=== PATIENT | female | born 1935 | race Caucasian/White ===

== ENCOUNTER 2020-04-18 09:02 | Inpatient (IN) ==
[2020-04-18] MEDS ORDERED: ACETAMINOPHEN 1,000 MG/100 ML VIAL IV STA (10:07)
--- NOTE | 2020-04-18 10:15 | Emergency Department Note ---
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 infarct. Based on this as well as the fact that the patient does not take any medications and her blood pressure is very high I did discuss the case with the hospitalist service who did agree to meet the patient I will note that the patient's troponin is elevated. She does have a slight elevation in her white blood cell count and was started on Rocephin for UTI. An order was placed for continuous cardiac monitoring. The monitor shows a rate of 90 with Normal SInus rhythm. The patient was evaluated during a period of high volume and high acuity while the hospital was at overcapacity during the global COVID-19 pandemic, and that diagnosis was suspected/considered upon their initial presentation. Their evaluation, treatment and testing was consistent with current guidelines for patients who present with complaints or symptoms that may be related to COVID- 19. Impression & Plan Fall, Vomiting, Acute UTI, Hypertension, Renal infarct Discharge Plan Visit Data Chief Complaint: Fall ED Provider: Raman Ross Discharge Problem: Fall, Vomiting, Acute UTI, Hypertension, Renal infarct Forms Stand Alone Forms: [employer] Prescriptions Prescriptions: No Action hydrocodone-acetaminophen 10-325 mg tablet 1 tab PO .COMPLEX PRN (Reason: pain) Qty: 120 RF: 0 Referrals Referrals: PCP,NO [Primary Care Provider] -
[2020-04-18] MEDS ORDERED: SODIUM CHLORIDE 0.9% 1000ML 500 ML IV ONE (10:18)
[2020-04-18 10:58] LABS: Basophils # (auto) 0.01 K/uL (0-0.2); Basophils % (auto) 0.1 %; Eosinophils # (auto) 0.01 K/uL (0-0.5); Eosinophils % (auto) 0.1 %; Hematocrit (blood only) 33.9 % (37-47); Hemoglobin 11.1 g/dL (12.0-16.0); Immature Granulocytes # (auto) 0.02 K/uL (0.00-0.02); Immature Granulocytes % (auto) 0.2 %; Lymphocytes # (auto) 1.13 K/uL (1.2-3.4); Lymphocytes % (auto) 8.6 %; Mean Corpuscular Hemoglobin 30.6 pg (25-34); Mean Corpuscular Hgb Conc 32.7 g/dL (32-36); Mean Corpuscular Volume 93.4 fL (80-100); Mean Platelet Volume 8.9 fL (7.4-10.4); Monocytes # (auto) 0.88 K/uL (0.11-0.59); Monocytes % (auto) 6.7 %; Neutrophils # (auto) 11.15 K/uL (1.4-6.5); Neutrophils % (auto) 84.3 %; Platelet Count 367 K/uL (130-400); RDW Coefficient of Variation 15.6 % (11.5-14.5); RDW Standard Deviation 53.7 fL (36.4-46.3); Red Blood Count 3.63 M/uL (4.2-5.4)
[2020-04-18] MEDS: HYDROmorphone INJ 0.5 MG/0.5 ML SYR IV PRN ×2 (11:00→15:04)
[2020-04-18 11:14] LABS: Appearance Urine Cloudy (Clear); Bacteria Urine Automated Negative (Negative); Bilirubin Urine Negative (Negative); Blood Urine Trace (Negative); Color Urine Yellow; Glucose Urine UA Negative (Negative); Ketones Urine Negative (Negative); Leukocyte Esterase Urine 2+ (Negative); Nitrite Urine Negative (Negative); Protein Urine 3+ (Negative); RBC Urine Automated 0-4 /hpf (0-4); Specific Gravity Urine 1.016 (1.000-1.030); Urobilinogen Urine Negative (Negative); WBC Urine Automated >30 /hpf (0-5)
[2020-04-18 11:16] LABS: iSTAT Creatinine 0.9 mg/dl (0.6-1.3); iSTAT Hemoglobin 11.9 g/dl (12.0-16.0); iSTAT Ionized Calcium 1.04 mmol/l (1.12-1.32); iSTAT Potassium 3.7 mmol/L (3.3-5.0)
--- NOTE | 2020-04-18 11:31 | Electrocardiogram Report ---
Test Reason : Blood Pressure : / mmHG Vent. Rate : 112 BPM Atrial Rate : 112 BPM P-R Int : 128 ms QRS Dur : 074 ms QT Int : 362 ms P-R-T Axes : 020 010 016 degrees QTc Int : 494 ms Poor data quality, interpretation may be adversely affected Sinus tachycardia with Premature atrial complexes Abnormal ECG No previous ECGs available Confirmed by Hemanth Davis ([id number]) on 04/18/2020 11:30:54 AM Referred By: REFERRED SELF Confirmed By:Shay Davis
[2020-04-18 11:40] LABS: Alanine Aminotransferase 19 U/L (12-78); Albumin Globulin Ratio 0.9 (0.9-2); Albumin Level 3.3 gm/dl (3.4-5.0); Alkaline Phosphatase 44 U/L (45-117); BUN Creatinine Ratio 18.9 (10-20); Bilirubin,Total 0.5 mg/dl (0.2-1); Blood Urea Nitrogen 16 mg/dl (7-18); Calcium 8.6 mg/dl (8.5-10.1); Carbon Dioxide 29 mmol/L (21-32); Chloride 101 mmol/L (98-107); Creatine Kinase MB 1.9 ng/ml (0.5-3.6); Est GFR (Non-African American) 63.8; Globulin 3.8 gm/dl (2.5-4.0); Glucose 101 mg/dl (70-99); Thyroid Stimulating Hormone 0.371 uIu/ml (0.300-4.500); Total Protein 7.1 gm/dl (6.4-8.2); Troponin I 0.035 ng/ml (0-0.045)
[2020-04-18 11:41] LABS: Sodium 136 mmol/L (136-145)
--- NOTE | 2020-04-18 11:43 | XRay Report ---
XR chest 1V portable CLINICAL HISTORY: weakness COMPARISON STUDY: No previous studies for comparison. FINDINGS: The patient is hyperinflated. The heart is normal in size. There is no lobar consolidation. There are 2 nonspecific nodular opacities in the left midlung zone the largest of which measures 15 mm. While these may be atelectatic or postinflammatory, neoplastic process cannot be excluded with ce rtainty. Radiographic follow-up is recommended.. There is a left seventh rib fracture. No pneumothora x is visualized. IMPRESSION: 1. Hyperinflation 2. No evidence of lobar consolidation 3. Nonspecific nodular opacities within the left midlung zone. Radiographic follow-up recommended. 4. Left seventh rib fracture. No pneumothorax. ACT 112: Negative or not required by law. Electronically signed by: Santi Chino M.D. 04/18/2020 11:41 AM
--- NOTE | 2020-04-18 11:45 | XRay Report ---
XR femur RT 2V routine CLINICAL HISTORY: Right leg pain trauma COMPARISON: None. DISCUSSION: No acute fractures or dislocations are visualized. There are osteoarthritic changes prese nt within the knee. IMPRESSION: No fractures identified. ACT 112: Negative or not required by law. Electronically signed by: Santi Chino M.D. 04/18/2020 11:44 AM
[2020-04-18] MEDS ORDERED: cefTRIAXone SODIUM 2,000 MG/70 ML BAG IV STA (12:08)
--- NOTE | 2020-04-18 12:11 | CT Scan Report ---
CT OF THE HEAD WITHOUT CONTRAST CLINICAL HISTORY: Altered mental status. COMPARISON STUDY: No previous studies for comparison. TECHNIQUE: Helical axial images of the head were obtained without IV contrast. Automated exposure con trol was utilized for the study. A dose lowering technique was utilized adhering to the principles o f ALARA. FINDINGS: No acute intracranial hemorrhage, midline shift or mass effect is present. Ventricular syst em is unremarkable. Basal cisterns are patent. There is an old infarct within the left occipital lobe . White matter hypodensity suggests small vessel disease. There are no findings to suggest acute dura l sinus thrombosis or acute territorial infarct. No calvarial fracture. Relative lucency of the right parietal bone is likely benign. IMPRESSION: 1. No acute intracranial findings. 2. No calvarial fracture. 3. Old left occipital lobe infarct. ACT 112: Negative or not required by law. Electronically signed by: Cruz Jacob M.D. 04/18/2020 12:09 PM
--- NOTE | 2020-04-18 12:13 | CT Scan Report ---
CT OF THE CERVICAL SPINE WITHOUT CONTRAST CLINICAL HISTORY: Multiple falls. Back pain. COMPARISON STUDY: No previous studies for comparison. TECHNIQUE: Helical axial images of the cervical spine were obtained without IV contrast. Sagittal a nd coronal reconstructions were viewed. Automated exposure control was utilized for the study. A do se lowering technique was utilized adhering to the principles of ALARA. FINDINGS: Alignment of the cervical spine is anatomic. Vertebral body heights are maintained. No acut e cervical spine fracture or subluxation is present. There is no prevertebral edema. Facet joints are intact. Severe multilevel facet arthrosis is present. There is moderate multilevel disc space narro wing with osteophytosis. IMPRESSION: No acute cervical spine fracture or subluxation. ACT 112: Negative or not required by law. Electronically signed by: Cruz Jacob M.D. 04/18/2020 12:11 PM
--- NOTE | 2020-04-18 12:26 | CT Scan Report ---
CT OF THE THORACIC SPINE CLINICAL HISTORY: Back pain. Multiple falls. COMPARISON STUDY: No previous studies for comparison. TECHNIQUE: Helical axial images of the thoracic spine were obtained. Sagittal and coronal reconstru ctions were viewed. Automated exposure control was utilized for the study. A dose lowering techniqu e was utilized adhering to the principles of ALARA. FINDINGS: Alignment of the thoracic spine is anatomic. Vertebral body heights are maintained. There i s no acute thoracic spine fracture. Central canal is suboptimally assessed by CT but there is no evid ence for significant central canal stenosis within the thoracic spine. Facet joints are intact. There is mild multilevel facet arthrosis. Paravertebral soft tissues are unremarkable. Multiple bilateral lower lung pulmonary nodules measure up to 4 mm. Lingular and left lower lobe airspace opacity is par tially imaged on this examination. There is biapical scarring and mild paraseptal emphysema. IMPRESSION: 1. No acute thoracic spine fracture or subluxation. 2. Numerous bilateral lower lobe pulmonary nodules. These are indeterminate although probably benign. A follow-up chest CT in 6 months to ensure stability is recommended. ACT 112: Negative or not required by law. Electronically signed by: Cruz Jacob M.D. 04/18/2020 12:25 PM
--- NOTE | 2020-04-18 12:28 | CT Scan Report ---
CT SCAN OF THE ABDOMEN AND PELVIS WITH IV CONTRAST; CT SCAN OF THE LUMBAR SPINE CLINICAL HISTORY: Generalized abdominal pain. Vomiting. Low back pain. COMPARISON STUDY: No priors. TECHNIQUE: Following the IV administration of 94 cc of Optiray 320, CT scan of the abdomen and pelvi s is performed from the lung bases to the proximal femora. Additionally, CT scan of lumbar spine is p erformed from the lower thoracic spine to the sacrum. Images for both examinations Are reviewed in th e axial, sagittal, and coronal planes. IV contrast was administered without complication. A dose lowe ring technique was utilized adhering to the principles of ALARA. The examination is degraded by patie nt cachexia. CT DOSE: 1233.23 mGy.cm FINDINGS: Lung bases: The heart is mildly enlarged and without pericardial effusion. The coronary arteries are densely calcified. There are numerous (greater than 10) bibasilar pulmonary nodules which measure up to 5 mm. Certified Orthotist Practice Manager nodules are seen in the right lower lobe on images #66, and #67, and #69. Rep resentative nodules in the left lower lobe are similar image #68 and #69. Patchy airspace opacities a re seen in the left lower lobe and lingula. Liver: The contrast-enhanced liver is normal in size, contour, and attenuation. There is no intrahepa tic biliary ductal dilatation. The hepatic veins and portal veins are patent. Gallbladder: Unremarkable. Spleen: Normal in size and attenuation. There are calcified splenic granulomas. Pancreas: Moderately atrophic and grossly unremarkable. Adrenal glands: Unremarkable. Kidneys: The contrast enhanced kidneys demonstrate mild cortical atrophy and are without hydronephros is. The kidneys enhance symmetrically. There is a 1.8 cm perfusion defect identified in the lower sherwin e of left kidney on image #165. A 9 mm perfusion defect is seen in the upper pole the right kidney on image #132. There are numerous bilateral renal cysts which measure up to [address] cortical hypodensities also likely represent cysts but are too small for definitive characterizat ion. There are numerous bilateral nonobstructing renal calculi. Abdominal vasculature: There is advanced atherosclerotic calcification and mild ectasia of the abdomi nal aorta. There is focal high-grade stenosis with near complete occlusion of the right superficial f emoral artery seen on image #423. Stomach and bowel: Question mucosal thickening and hyperemia of the stomach. Wall thickening and tyrone a of the distal stomach is suggested on image #210. No bowel obstruction is seen. The appendix is no t identified and reported surgically absent. Peritoneum: There is no intraperitoneal free air or abdominal ascites. Lymphadenopathy: None. Pelvic viscera: The bladder is distended but otherwise normal in appearance. There are is a small foc us of intraluminal gas seen on image #331. The uterus is normal as visualized. No adnexal lesion is s een. Findings suggest pelvic floor prolapse. Skeletal structures: The skeletal structures are osteopenic. The bony pelvis and proximal femora appe ar intact. See below for discussion of the lumbar spine. No lytic or blastic lesions are seen. LUMBAR SPINE: Vertebral body height is maintained throughout the lumbar spine. There is minimal anter olisthesis at L4-L5. Alignment is otherwise preserved. Small anterior and lateral marginal osteophyte s are seen throughout. The transverse and spinous processes are intact. There is no evidence of spond ylolysis. There is advanced disc space narrowing and endplate sclerosis seen at L1-L2. Moderate disc space narrowing is seen at L5-S1, with mild disc space narrowing seen at the remaining lumbar levels. Posterior disc osteophyte complexes are seen at all lumbar levels. There is no CT evidence of high-g rade spinal stenosis. Moderate facet arthropathy is seen in the lower lumbar region. There is fatty a trophy of the paraspinous musculature. A linear metallic foreign body is identified between the L5 an d S1 spinous processes on sagittal image #36. IMPRESSION: 1. There is a 1.8 cm perfusion defect in the lower pole of the left kidney, as well as a 0.9 cm perfu sruthi defect in the upper pole of the right kidney. This likely represent acute to subacute renal infa rcts. 2. The gastric mucosa appears thickened and hyperemic, with probable wall thickening and edema of the distal stomach. Correlate clinically for evidence of gastritis or possibly ulcer disease. This could be further assessed with endoscopy if clinically warranted. 3. There are numerous bilateral nonobstructing renal calculi. 4. There is no evidence of fracture or malalignment involving the lumbar spine. 5. Osteopenia and spondylotic change as above. 6. There is focal high-grade stenosis of the right proximal superficial femoral artery. 7. Patchy airspace opacities are present in the left lower lobe and lingula. This could represent sca rring/atelectasis versus an infectious/inflammatory pneumonitis. Clinical correlation will be require d. 8. There are numerous bilateral lower lobe pulmonary nodules which measure up to 5 mm. Follow-up with a nonemergent chest CT is recommended for further assessment. 9. Additional findings as above. ACT 112: Positive. There are findings on this exam that require communication between the performing entity and the patient following Patient Test Result Information Act ([place] Act 112) guidelines. Electronically signed by: Manuel Gómez M.D. 04/18/2020 12:27 PM
[2020-04-18 12:50] LABS: Potassium 3.5 mmol/L (3.5-5.1)
--- NOTE | 2020-04-18 14:58 | History & Physical Report ---
Date of Service April 18, 2020 Assessment & Plan (1) Fall: Weakness, possibly related to nutrition status vs untx UTI vs polypharmacy PT/OT pending (2) Bipolar 1 disorder: No current meds other than xanax Records requested (3) Chronic pain disorder: Hx of fibro noted hydrocodone, methadone Records requested (4) UTI (urinary tract infection): Recent dx in [place], finished unspecified abx yesterday UA + for leuk est, neg nitrites Urine cx pending Mild leukocytosis, possible stress reaction (5) Lung cancer: States tx with radiation 2 yrs ago CXR and CT noted for nodular opacities, possibly scarring Records requested for comparison If unable to obtain, will need f/u imaging Pt was on "hospice, but not the end of life kind". Possibly palliative care?? Palliative care c/s pending (6) Renal infarct: Noted on CTA Start heparin drip, no bolus given body habitus Vascular c/s pending (7) Malnutrition: Uncertain if related to an undx recurrent cancer vs news reporter issues as related per family B12, folate, iron panel pending TSH WNL Pt states hx of Grave's disease (8) DVT prophylaxis: Heparin drip for DVT proph Pt was scheduled to be seen as a new pt at [facility] tomorrow, will need rescheduled Info from rx bottles: Dr. Lucho Lemus, [facility] [phone] Dr. Blanco, methadone rx, no # given Dr. Delilah Hamilton, Pt states she followed with a Dr. Adrian for oncology, no other info known HIM requested History of Present Illness Chief Complaint: 84 y/o F who was brought to the ED after a fall earlier today. Currently, pt states she feels very nervous. She says she has not slept in 4 days. She states that she has had n/v x5 days, but that she feels hungry now. She has pain in her b/l LE, which is her usual pain that she typically take hydrocodone for. She states she has night sweats at times. Pt was living in [place], [place] with her son until recently. Pt tells me that she is unsure why her sister came there and brought her back to [place]. She states that "I had a nice little apartment there". Niece tells me that pt was living in a alf community that has an age restriction. Pt's son was able to live there as a news reporter. Niece states that the son would leave the home for long periods of time and the pt was not able to ambulate to feed herself. Niece stat es that they came to [place] to get the pt as the pt was being evicted "because of her son". She states that the home was "unsanitary". She states that the pt's son would not give them any of her records, including medical records. She states that she does not have current contact info for the pt's son. Pt tells me that she was recently dx with a UTI and finished her abx yesterday. She does not know what she was taking. She does not know who dx her with a UTI. Her niece does confirm this, but states that the UTI was dx prior to she and pt's sister arriving in [place]. Pt states she has been urinating normally. She states that she has a hard time starting to urinate often. No burning or frequency. Pt tells me that she has been off of xanax x2 months. Her niece tells me that she only just recently ran out. She had "maybe 5 pills" with her when they left [place]. Niece says she took one yesterday. Pt tells me that she last took her hydrocodone yesterday. Niece says that pt took her afternoon dose around 4:30p, but refused her 10p dose. She confirms that pt did not have any today. Niece told me that pt took her methadone last night. She is unsure of the dose, but states that she takes 2 pills twice a day. Pt tells me that she had some sort of event about 1 year ago that was a seizure vs a stroke. She states she was never put on any seizure meds and has had no repeat episodes. Niece confirms that pt's only meds were xanax, hydrocodone, and methadone. Pt tells me "I need an antidepressant". She states that she used to take an antidepressant, but she is not sure why it was stopped. Pt tells me that she was dx with lung cancer roughly 2 years ago. She was treated with what she describes as radiation tx. She states she followed with a Dr. Adrian, but does not know his full name. She tells me she was involved with hospice there, but does not know the name of any practice or doctors. [place] states she was involved in "hospice, but not the end of life kind". She also tells me that pt's son told them that he cured pt's cancer. Pt's medication bottles are at her sister's home. [place] is going to obtain these to let us know the names of the prescribing physicians. She will call in with this info. Pt was set up to establish with a PCP tomorrow at [facility]. [place] does not remember who pt was to see. Primary Care Provider: NO PCP Allergies Allergy/AdvReac Type Severity Reaction Status Date / Time No Known Allergies Allergy Unverified 04/18/20 09:47 Home Medications Medication Instructions Recorded Confirmed Type hydrocodone 10 mg-acetaminophen 1 tab PO .COMPLEX PRN #120 tab 04/12/20 04/18/20 Rx 325 mg tablet Past Med/Surg History Family History (Updated 04/18/20 @ 14:57 by Ghazala Banks DO) Other Diabetes Social History (Updated 04/18/20 @ 14:57 by Ghazala Banks DO) Smoking Status: Never smoker Number of Years Since Quit: 2; Hx Alcohol Use: No Hx Substance Use: No Feels Safe at Home: Yes Review of Systems Review of Systems: Pertinent positives and negatives reviewed in HPI--all others negative Physical Exam Constitutional: + cachectic and + frail appearing; not disheveled Eyes: normal visual maldonado by confrontation and + anicteric sclerae Neck: normal visual inspection and trachea midline Respiratory: normal respiratory effort, lungs clear to auscultation Cardiovascular: Rate/Rhythm: regular rhythm and + tachycardic Gastrointestinal (Abdomen): Inspection/Auscultation: abdomen not distended Percussion/Palpation: abdomen soft; abdomen nontender Musculoskeletal: Head/Neck/Chest: normocephalic and head atraumatic negative for edema, peripheral pulses intact Skin: no rashes, warm and dry Neurologic: awake; not confused Speech / Cognition: normal speech Psychiatric: A+Ox3, euthymic affect Results & Data Results & Data ([facility]) Vital Signs (Past 12 Hours) Vital Signs Temp Pulse Pulse Resp BP BP Pulse Ox 04/18/20 12:00 98 H 18 180/120 H 97 04/18/20 10:33 98 H 18 159/114 H 96 04/18/20 10:12 97 04/18/20 09:14 36.8 C 110 H 18 162/109 H 97 Diagnostic Findings CXR: nonspecific nodular opacity L mid-lung L 7th rib fx Femur XR: neg for acute CT head: neg for acute, old L occipital lobe infarct C-spine/t-spine CT: neg for acute CTAP/L-spine CT: 1. There is a 1.8 cm perfusion defect in the lower pole of the left kidney, as well as a 0.9 cm perfusion defect in the upper pole of the right kidney. This likely represent acute to subacute renal infarcts. 2. The gastric mucosa appears thickened and hyperemic, with probable wall thick ening and edema of the distal stomach. Correlate clinically for evidence of gastritis or possibly ulcer disease. This could be further assessed with endoscopy if clinically warranted. 3. There are numerous bilateral nonobstructing renal calculi. 4. There is no evidence of fracture or malalignment involving the lumbar spine. 5. Osteopenia and spondylotic change as above. 6. There is focal high-grade stenosis of the right proximal superficial femoral artery. 7. Patchy airspace opacities are present in the left lower lobe and lingula. This could represent scarring/atelectasis versus an infectious/inflammatory pneumonitis. Clinical correlation will be required. 8. There are numerous bilateral lower lobe pulmonary nodules which measure up to 5 mm. Follow-up with a nonemergent chest CT is recommended for further assessment. 9. Additional findings as above. ECG Rhythm: sinus tachycardia Code Status & VTE Plan Code Status Full code VTE Prophylaxis Plan VTE Prophylaxis will be ordered: Yes PG Care Time/CCT Total # of Minutes Spent Total Time Spent with Patient: Total time spent is greater than 50% in coordina tion of care (as documented) at patient's floor/unit and/or counseling patient: Coding Level of Care Code 00078 Initial Inpt Care Lvl 3 Diagnoses Fall W19.XXXA Bipolar 1 disorder F31.9 Chronic pain disorder G89.4 UTI (urinary tract infection) N39.0 Lung cancer C34.90 Renal infarct N28.0 Malnutrition E46 DVT prophylaxis Z29.9
[2020-04-18] MEDS ORDERED: ONDANSETRON INJ 2 MG/ML 2 ML VIAL IV PRN (17:11)
[2020-04-18] MEDS ORDERED: MAGNESIUM HYDROXIDE SUSP 30 ML UDC PO PRN (17:11)
[2020-04-18 18:30] LABS: Ferritin 78.8 ng/ml (8-388)
[2020-04-18] MEDS: HYDROcodone/ACETAMINOPHEN 10/325 TAB PO PRN (18:36)
[2020-04-18] MEDS: NSS + 20MEQ KCL 20 MEQ/1,000 ML BAG IV SCH (18:37)
[2020-04-18] MEDS ORDERED: METOPROLOL TARTRATE 1 MG/ML VIAL IV STA (18:44)
[2020-04-18 19:43] LABS: Folate (Folic Acid) 14.3 ng/ml (>5.38)
[2020-04-19] MEDS: HYDROcodone/ACETAMINOPHEN 10/325 TAB PO PRN ×4 (01:14→19:30)
[2020-04-19 06:13] LABS: Basophils # (auto) 0.01 K/uL (0-0.2); Basophils % (auto) 0.1 %; Eosinophils # (auto) 0.01 K/uL (0-0.5); Eosinophils % (auto) 0.1 %; Hematocrit (blood only) 32.1 % (37-47); Hemoglobin 10.6 g/dL (12.0-16.0); Immature Granulocytes # (auto) 0.01 K/uL (0.00-0.02); Immature Granulocytes % (auto) 0.1 %; Lymphocytes # (auto) 1.07 K/uL (1.2-3.4); Lymphocytes % (auto) 10.2 %; Mean Corpuscular Hemoglobin 30.8 pg (25-34); Mean Corpuscular Volume 93.3 fL (80-100); Mean Platelet Volume 9.1 fL (7.4-10.4); Monocytes # (auto) 0.71 K/uL (0.11-0.59); Monocytes % (auto) 6.8 %; Neutrophils # (auto) 8.69 K/uL (1.4-6.5); Neutrophils % (auto) 82.7 %; Platelet Count 383 K/uL (130-400); RDW Coefficient of Variation 15.8 % (11.5-14.5); RDW Standard Deviation 54.3 fL (36.4-46.3); Red Blood Count 3.44 M/uL (4.2-5.4)
[2020-04-19 06:44] LABS: BUN Creatinine Ratio 17.2 (10-20); Creatinine Clr Calc Pharmacy 29.4 ml/min; Est GFR (African American) 78.4; Est GFR (Non-African American) 67.6; Potassium 3.4 mmol/L (3.5-5.1)
[2020-04-19] MEDS: POTASSIUM CHLORIDE CRTAB 20 MEQ TABCR PO SCH ×3 (09:01→20:34)
[2020-04-19] MEDS ORDERED: lisinopril 2.5 MG TAB PO ONE (09:41)
[2020-04-19] MEDS ORDERED: METOPROLOL TARTRATE 25 MG TAB PO SCH (09:45)
--- NOTE | 2020-04-19 12:09 | Consultation ---
Date of Consultation April 19, 2020 Assessment & Plan (1) Renal infarct: Pt with 2 small area of renal infarct and has retained adequate renal fxn. While her CT was not a CT angio, only mild calcification of arteries was noted without severe stenosis. She does complain of palpitations upon questioning, so would consider echo to eval for cardioembolic source and consider starting pt on plavix preventatively if no contraindications per medicine. No indications for vascular surgical intervention at this time. Of note, pt also with asymptomatic SFA stenosis noted on CT scan, no need for surgical intervention. Please call if needed. History of Present Illness Reason for Consultation: BL renal infarcts Attending Physician: Steve Colon History of Present Illness 84 yo f with hx of chronic pain, lung ca, admitted after a fall at home, seen in consultation today for eval after incidental findiing of Bl renal infarcts. Pt was previously a resident of [place], and has only moved to [place] a short time ago. States she just fell to the ground at home where she lives with family. Does admit frequent palpitations. Denies previous hx of falls, hx of kidney problems, claudication, rest pain, toe discoloration, abd pain, N/V, chest pain, GUERRERO, fever, other complaints. Pt is a poor historian and seems mildly confused. CT scan abd/pelvis demonstrates 2 small foci of renal infarct. Allergies Allergy/AdvReac Type Severity Reaction Status Date / Time No Known Allergies Allergy Unverified 04/18/20 09:47 Home Medications Medication Instructions Recorded Confirmed Type hydrocodone 10 mg-acetaminophen 1 tab PO .COMPLEX PRN #120 tab 04/12/20 04/18/20 Rx 325 mg tablet Patient History Family History Other Diabetes Social History Smoking Status: Former smoker Number of Years Since Quit: 2; Hx Alcohol Use: No Hx Substance Use: Yes Preferred Language: Slovak Communication Ability: Effective Cable Splicer Apprentice Required: No Beliefs That Will Affect Care: None Current Living Situation: Family Feels Safe at Home: Yes Assistive Devices: Denture - Upper, Glasses and Walker Review of Systems Review of Systems: All systems reviewed & are unremarkable except as noted in HPI & below Physical Exam Constitutional: + thin, + frail appearing, cooperative, comfortable, + malnourished and + underweight; not in distress Eyes: PERRL, conjunctivae normal, anicteric sclerae ENMT: external ear and nose normal, oropharynx normal Ears: no hearing impairment Neck: trachea midline Respiratory: normal respiratory effort, lungs clear to auscultation Cardiovascular: RRR, no murmur, no edema Vessels: femoral pulses present, posterior tibial pulses present, dorsalis pedis pulses present and radial pulses present; + abnormal peripheral pulses Extremities: normal capillary refill; no edema Gastrointestinal (Abdomen): normal bowel sounds, soft, nontender, no hepatosplenomegaly Musculoskeletal: no cyanosis or clubbing, extremities motor strength 5/5 Skin: no rashes, warm and dry Neurologic: moves all extremities and awake; no focal motor deficits and not confused Psychiatric: Orientation: alert, oriented to person and oriented to place Affect: euthymic affect and + irritable affect Results & Data ([facility]) Vital Signs (Past 12 Hours) Vital Signs Temp Pulse Pulse Resp BP BP Pulse Ox 04/19/20 11:15 36.8 C 104 H 18 161/93 H 96 04/19/20 10:49 59 L 169/100 H 04/19/20 09:12 224/126 H 04/19/20 07:35 36.8 C 100 H 18 199/92 H 96 04/19/20 06:51 79 169/89 H 04/19/20 04:26 37.1 C 88 20 188/102 H 95
[2020-04-19] MEDS: NSS + 20MEQ KCL 20 MEQ/1,000 ML BAG IV SCH (14:08)
--- NOTE | 2020-04-19 16:00 | Hospitalist Progress Note ---
Date of Service April 19, 2020 Assessment & Plan (1) Fall: Weakness, possibly related to nutrition status vs untx UTI vs polypharmacy This is likely nutrition related. Patien's BMI is very low at 14. Concern that patient is not eating due to possible malignancy vs esophageal dysmotilty. Had speech eval today and she tolerated her meal, and not showing signs of aspiration. She may benefit from a barium swallow, however, she cannot stand for the test to be taken. It appears she was on hopsice in the past. Consulted pallitive care, awaiting input. PT/OT pending (2) Bipolar 1 disorder: No current meds other than xanax Records requested (3) Chronic pain disorder: Hx of fibro noted will place on gabapentin. 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 Lucho Lemus, [facility] [phone] Dr. Blanco, methadone rx, no # given Dr. Delilah Hamilton, Pt states she followed with a Dr. Adrian for oncology, no other info known HIM requested Admission and Anticipated Discharge Date Admission Date: April 18, 2020 Subjective Patient reports feeling miserable, she complains of generalized burning sensation in her body. It is generalized, she reports having this problem for at least 2 years. Review of Systems Review of Systems: All systems reviewed & are unremarkable except as noted in HPI & below Physical Exam Physical Exam: Constitutional: + cachectic and + frail appearing; not disheveled Eyes: normal visual maldonado by confrontation and + anicteric sclerae Neck: normal visual inspection and trachea midline Respiratory: normal respiratory effort, lungs clear to auscultation Cardiovascular: Rate/Rhythm: regular rhythm and + tachycardic Gastrointestinal (Abdomen): Inspection/Auscultation: abdomen not distended Percussion/Palpation: abdomen soft; abdomen nontender Musculoskeletal: Head/Neck/Chest: normocephalic and head atraumatic negative for edema, peripheral pulses intact Skin: no rashes, warm and dry Neurologic: awake; not confused Speech / Cognition: normal speech Psychiatric: A+Ox3, euthymic affect Results & Data Results & Data ([facility]) Vital Signs (Past 12 Hours) Vital Signs Temp Pulse Pulse Pulse Resp BP BP 04/19/20 15:27 74 04/19/20 13:13 37.3 C 79 16 165/80 H 04/19/20 11:15 36.8 C 104 H 18 161/93 H 04/19/20 10:49 59 L 169/100 H 04/19/20 09:12 224/126 H 04/19/20 07:35 36.8 C 100 H 18 199/92 H 04/19/20 06:51 79 169/89 H 04/19/20 04:26 37.1 C 88 20 188/102 H Pulse Ox 04/19/20 15:27 04/19/20 13:13 97 04/19/20 11:15 96 04/19/20 10:49 04/19/20 09:12 04/19/20 07:35 96 04/19/20 06:51 04/19/20 04:26 95 PG Care Time/CCT Total # of Minutes Spent Total Time Spent with Patient: Total time spent is greater than 50% in coordination of care (as documented) at patient's floor/unit and/or counseling patient: Coding Level of Care Code 67020 Subseq Hosp Care Lvl 3 Diagnoses Fall W19.XXXA Bipolar 1 disorder F31.9 Chronic pain disorder G89.4 UTI (urinary tract infection) N39.0 Lung cancer C34.90 Renal infarct N28.0 Malnutrition E46 DVT prophylaxis Z29.9 Time Spent (min) 35
--- NOTE | 2020-04-19 16:18 | Palliative Care Consultation ---
Date of Consultation April 19, 2020 Assessment & Plan (1) Chronic pain disorder: She is currently on hydrocodone/APAP () prn for pain. She appears to have adequate pain control at this time. I'm not sure what the indication for the methadone was. She does not have c/o neuropathic pain. Would monitor on hydrocodone. If this is not adequate, would consider morphine or oxycodone. EKG on admission showed QTc of 494 so methadone would not be first choice. (2) Malnutrition: Anorexia with lung cancer. She reports desire to eat and wants to try and gain weight. She has zofran ordered for nausea and does not have difficulty with swallowing. 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 (3) Lung cancer: (4) Palliative care encounter: I spoke with Lety about how she feels about living in [place]. She feels that this is a good thing. Apparently, her son suddenly several months ago and she feels that she is better able to grieve while living here with her sister. She is not interested in further cancer treatment at this time as the effects of prior treatment were very debilitating for her. In general, her wish is to live with her sister and focus on comfort directed care until her . She would not want resuscitation and code status was changed to reflect this. She would, however, like to try some therapy to improve her strength and appetite. I asked her who we would talk to about decisions for her healthcare if she were unable to tell us and she indicated that she would want her niece, Raya, to be her healthcare surrogate. She would be interested in establishing healthcare POA for Raya and I have reached out to Mague Anthony, patient client representative to facilitate this. I also spoke with Raya on the phone. She is agreeable to serving as her healthcare POA and understands her wish to be DNR. She is also supportive of a course of home care with therapy at home when she is ready for discharge with transition to hospice when appropriate. Raya has had a bad experience with hospice in the past and is not eager to start hospice now but does realize that will be the best support for Lety if therapy is not effective. I did discuss this with Dr. Colon. Palliative care will follow. History of Present Illness Reason for Consultation: goals of care Requesting Physician: Dr. Banks Attending Physician: Steve Colon History of Present Illness 84 yo lady who had been living in [facility] until recently. She has h/o lung cancer and received treatment in [place]. She describes this as being worse than the cancer and is no longer receiving treatment. She has been very frail with poor appetite. Her baseline weight is 120lbs and she weight 76 lbs o n admission. She had been living in a halfway community in [place] but was not able to care for herself and had been evicted from the apartment due to sanitation concerns. Her sister, Colleen, and niece, Raya, had driven to [place] and brought her home to [facility] to live with them. She had been scheduled to establish with a PCP today but fell at home and was hospitalized yesterday. She has a 7th rib fracture but CTs of cervical, thoracic and lumbar spine were negative. According to her niece, she had been on methadone, hydrocodone and xanax while in [place] but had run out of medication but it is not clear when this happened or what the doses of medication were. Lety is awake and alert. She is c/o nausea. She does have some pain in her neck which she attributes to the fall but denies other pain. She denies dyspnea. 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 Beliefs That Will Affect Care: None Current Living Situation: Family Feels Safe at Home: Yes Assistive Devices: Denture - Upper, Glasses and Walker Review of Systems Review of Systems: [place] Symptom Assessment Scale Pain 1/3 Dyspnea 0/3 Nausea 2/3 Anorexia 2/3 Fatigue 2/3 Drowsiness 0/3 Anxiety 0/3 Palliative Performance Score 40% Physical Exam Constitutional: + frail appearing cachectic ENMT: Mouth: + dry oral mucous membranes temporal wasting Respiratory: normal respiratory effort; no labored breathing Gastrointestinal (Abdomen): Percussion/Palpation: abdomen soft; abdomen nontender Skin: warm and dry Neurologic: no focal motor deficits Psychiatric: Orientation: alert and oriented x 3 Mood: + depressed mood Results & Data ([facility]) Vital Signs (Past 12 Hours) Vital Signs Temp Pulse Pulse Pulse Resp BP BP 04/19/20 15:27 74 04/19/20 13:13 99.1 F 79 16 165/80 H 04/19/20 11:15 98.2 F 104 H 18 161/93 H 04/19/20 10:49 59 L 169/100 H 04/19/20 09:12 224/126 H 04/19/20 07:35 98.2 F 100 H 18 199/92 H 04/19/20 06:51 79 169/89 H 04/19/20 04:26 98.8 F 88 20 188/102 H Pulse Ox 04/19/20 15:27 04/19/20 13:13 97 04/19/20 11:15 96 04/19/20 10:49 04/19/20 09:12 04/19/20 07:35 96 04/19/20 06:51 04/19/20 04:26 95 PG Care Time/CCT Total # of Minutes Spent Total Time Spent with Patient: Total time spent is greater than 50% in coordination of care (as documented) at patient's floor/unit and/or counseling patient: total visit time 75 minutes with more than 50% of time spent on discussing symptom management, goals of care, surrogate decision maker, plan of care and coordination of care. Coding Level of Care Code 22540 Inpt Consult Level 4 Diagnoses Chronic pain disorder G89.4 Malnutrition E46 Lung cancer C34.90 Palliative care encounter Z51.5
--- NOTE | 2020-04-19 16:26 | XCELERA ---
[id number]
[2020-04-19] MEDS: HYDROmorphone INJ 0.5 MG/0.5 ML SYR IV PRN (18:36)
[2020-04-19] MEDS: SIMETHICONE 80 MG CHEW PO PRN (19:30)
[2020-04-19] MEDS: GABAPENTIN 100 MG CAP PO SCH (20:33)
[2020-04-19] MEDS: METOPROLOL TARTRATE 25 MG TAB PO SCH (20:34)
[2020-04-19] MEDS: HEPARIN SOD 5,000 UNIT/0.5 ML VIAL SQ SCH (20:38)
[2020-04-19] MEDS: ACETAMINOPHEN 325 MG TAB PO PRN (23:00)
[2020-04-20] MEDS: HYDROcodone/ACETAMINOPHEN 10/325 TAB PO PRN ×4 (04:27→20:14)
[2020-04-20] MEDS: METOPROLOL TARTRATE 25 MG TAB PO SCH ×2 (07:45→20:14)
[2020-04-20] MEDS: HEPARIN SOD 5,000 UNIT/0.5 ML VIAL SQ SCH ×2 (07:45→20:15)
[2020-04-20] MEDS: SIMETHICONE 80 MG CHEW PO PRN (07:45)
[2020-04-20] MEDS: NSS + 20MEQ KCL 20 MEQ/1,000 ML BAG IV SCH (10:31)
[2020-04-20 12:20] LABS: Basophils # (auto) 0.01 K/uL (0-0.2); Basophils % (auto) 0.1 %; Eosinophils # (auto) 0.01 K/uL (0-0.5); Eosinophils % (auto) 0.1 %; Hematocrit (blood only) 33.6 % (37-47); Hemoglobin 11.1 g/dL (12.0-16.0); Immature Granulocytes # (auto) 0.03 K/uL (0.00-0.02); Immature Granulocytes % (auto) 0.3 %; Lymphocytes # (auto) 1.08 K/uL (1.2-3.4); Mean Corpuscular Hemoglobin 31.3 pg (25-34); Mean Corpuscular Volume 94.6 fL (80-100); Mean Platelet Volume 9.2 fL (7.4-10.4); Monocytes # (auto) 0.94 K/uL (0.11-0.59); Monocytes % (auto) 7.9 %; Neutrophils # (auto) 9.88 K/uL (1.4-6.5); Neutrophils % (auto) 82.6 %; Platelet Count 436 K/uL (130-400); RDW Coefficient of Variation 15.9 % (11.5-14.5); RDW Standard Deviation 55.4 fL (36.4-46.3); Red Blood Count 3.55 M/uL (4.2-5.4); White Blood Count 11.95 K/uL (4.8-10.8)
[2020-04-20 13:13] LABS: BUN Creatinine Ratio 17.8 (10-20); Calcium 9.4 mg/dl (8.5-10.1); Creatinine Clr Calc Pharmacy 26.5 ml/min; Est GFR (Non-African American) 60.4; Potassium 4.5 mmol/L (3.5-5.1)
--- NOTE | 2020-04-20 13:22 | Palliative Care Progress Note ---
Date of Service April 20, 2020 Assessment & Plan (1) Chronic pain disorder: Currently controlled with hydrocodone. She reports that she had been on morphine in the past but doesn't want to take that anymore. She had been on methadone for chronic pain however, her QTc was 494 on admission EKG. Would continue hydrocodone for now. (2) Constipation: No bm since admission. Add senna BID. (3) Palliative care encounter: She has stated that she would not CPR or further cancer treatment. Her goal is to go home, remain at home and be comfortable. Her niece, Raya, who she has designated as her surrogate decision maker, supports this decision. Will call patient front desk representative to establish healthcare POA. While she would be appropriate for hospice care at home, both Lety and her family would prefer to start with home care and a trial of therapy at discharge. Discussed with Dr. Colon. Admission and Anticipated Discharge Date Admission Date: April 18, 2020 Subjective Sitting up in chair. Ate a small amount of lunch. Appetite remains poor. She c/o pain in her buttocks shooting down her right leg with feels like electric shock. She notes that she's had this pain for most of her life. She is also c/o pain in her ribs since fall. She has been taking hydrocodone four times a day and reports that this is controlling pain. She has not had BM since admission. Review of Systems Review of Systems: [place] Symptom Assessment Scale Pain 2/3 Nausea 0/3 Dyspnea 0/3 Anorexia 2/3 Fatigue 3/3 Drowsiness 0/3 Palliative Performance Score 40% Physical Exam Constitutional: + cachectic and + frail appearing; no acute distress ENMT: Mouth: oral mucous membranes not dry Respiratory: normal respiratory effort; no labored breathing Cardiovascular: Extremities: no edema Gastrointestinal (Abdomen): Inspection/Auscultation: abdomen not distended Musculoskeletal: Extremities: + muscle atrophy Neurologic: no focal motor deficits Psychiatric: A+Ox3, euthymic affect Results & Data ([facility]) Vital Signs (Past 12 Hours) Vital Signs Temp Pulse Resp BP BP Pulse Ox 04/20/20 11:09 97.5 F L 92 H 20 137/91 93 04/20/20 07:25 98.4 F 93 H 18 176/95 H 96 04/20/20 05:07 97.9 F 72 18 197/96 H 97 PG Care Time/CCT Total # of Minutes Spent Total Time Spent with Patient: Total time spent is greater than 50% in coordination of care (as documented) at patient's floor/unit and/or counseling patient: total visit time 35min with more than 50% of time spent on symptom management, goals and plan of care, coordination of care. Coding Level of Care Code 50280 Subseq Hosp Care Lvl 3 Diagnoses Chronic pain disorder G89.4 Constipation K59.00 Palliative care encounter Z51.5
--- NOTE | 2020-04-20 18:45 | Hospitalist Progress Note ---
Date of Service April 20, 2020 Assessment & Plan (1) Fall: Weakness, possibly related to nutrition status vs untx UTI vs polypharmacy This is likely nutrition related. Patien's BMI is very low at 14. Concern that patient is not eating due to possible malignancy vs esophageal dysmotilty. Had speech eval today and she tolerated her meal, and not showing signs of aspiration. She may benefit from a barium swallow, however, she cannot stand for the test to be taken. It appears she was on hospice in the past. Consulted pallitive care, Niece who is working on becoming POA wants her to be discharged on home health with possibility of transitioning to hospice. But she would like to see how she does first PT/OT eval completed/ (2) Bipolar 1 disorder: No current meds other than xanax Records requested (3) Chronic pain disorder: Hx of fibro noted will place on gabapentin. 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 Lucho Lemus, [facility] [phone] Dr. Blanco, methadone rx, no # given Dr. Delilah Hamilton, Pt states she followed with a Dr. Adrian for oncology, no other info known HIM requested Admission and Anticipated Discharge Date Admission Date: April 18, 2020 Subjective Patient reports that her pain is better controlled today. She continues to report that she wants to go home. D/W nusing, she has not been eating as well. Review of Systems Review of Systems: All systems reviewed & are unremarkable except as noted in HPI & below Physical Exam Physical Exam: Constitutional: + cachectic and + frail appearing; not disheveled Eyes: normal visual maldonado by confrontation and + anicteric sclerae Neck: normal visual inspection and trachea midline Respiratory: normal respiratory effort, lungs clear to auscultation Cardiovascular: Rate/Rhythm: regular rhythm and + tachycardic Gastrointestinal (Abdomen): Inspection/Auscultation: abdomen not distended P ercussion/Palpation: abdomen soft; abdomen nontender Musculoskeletal: Head/Neck/Chest: normocephalic and head atraumatic negative for edema, peripheral pulses intact Skin: no rashes, warm and dry Neurologic: awake; not confused Speech / Cognition: normal speech Psychiatric: A+Ox3, euthymic affect Results & Data Results & Data ([facility]) Vital Signs (Past 12 Hours) Vital Signs Temp Pulse Resp BP Pulse Ox 04/20/20 15:16 36.8 C 60 16 174/90 H 95 04/20/20 11:09 36.4 C L 92 H 20 137/91 93 04/20/20 07:25 36.9 C 93 H 18 176/95 H 96 PG Care Time/CCT Total # of Minutes Spent Total Time Spent with Patient: Total time spent is greater than 50% in coordination of care (as documented) at patient's floor/unit and/or counseling patient: Coding Level of Care Code 63085 Subseq Hosp Care Lvl 3 Diagnoses Fall W19.XXXA Bipolar 1 disorder F31.9 Chronic pain disorder G89.4 UTI (urinary tract infection) N39.0 Lung cancer C34.90 Renal infarct N28.0 Malnutrition E46 DVT prophylaxis Z29.9 Time Spent (min) 35
[2020-04-20] MEDS: GABAPENTIN 100 MG CAP PO SCH (20:14)
[2020-04-20] MEDS: SENNA 8.6 MG TAB PO SCH (20:15)
[2020-04-21] MEDS: NSS + 20MEQ KCL 20 MEQ/1,000 ML BAG IV SCH (05:24)
[2020-04-21] MEDS: HYDROcodone/ACETAMINOPHEN 10/325 TAB PO PRN ×4 (05:26→22:43)
[2020-04-21] MEDS: METOPROLOL TARTRATE 25 MG TAB PO SCH ×2 (08:55→20:02)
[2020-04-21] MEDS: HEPARIN SOD 5,000 UNIT/0.5 ML VIAL SQ SCH ×2 (08:55→20:03)
[2020-04-21] MEDS: SENNA 8.6 MG TAB PO SCH ×2 (08:56→20:02)
[2020-04-21] MEDS ORDERED: lisinopril 2.5 MG TAB PO ONE (09:30)
[2020-04-21] MEDS: SIMETHICONE 80 MG CHEW PO PRN (13:17)
[2020-04-21] MEDS ORDERED: POLYETHYLENE (MIRALAX) 17 GM PACK PO PRN (15:22)
--- NOTE | 2020-04-21 15:26 | Palliative Care Progress Note ---
Date of Service April 21, 2020 Assessment & Plan (1) Palliative care encounter: Goal is for return home to her sister's house. She had been thinking that she wanted home care support at home for therapy with the hope of increasing strength. Unfortunately, her rehab potential is limited and Lety is talking about hospice care at home. I did discuss this with Raya, her niece, and she wants to think about this and discuss with her mother. Discussed with Dr. Colon. (2) Constipation: currently on senna. will add miralax (3) Chronic pain disorder: Controlled with hydrocodone Admission and Anticipated Discharge Date Admission Date: April 18, 2020 Subjective Seems a little confused today. She still c/o pain in her buttocks on the right. She's had hydrocodone x 2 today. She also c/o nausea. She has not had BM since admission. She does have flatus. Review of Systems Review of Systems: [place] Symptom Assessment Scale Pain 2/3 Nausea 1/3 Dyspnea 0/3 Anorexia 2/3 Fatigue 3/3 Palliative Performance Score 40% Physical Exam Constitutional: + cachectic; no acute distress Respiratory: normal respiratory effort; no labored breathing Cardiovascular: Extremities: no edema Gastrointestinal (Abdomen): Percussion/Palpation: abdomen nontender Musculoskeletal: Extremities: + muscle atrophy Neurologic: + confused Results & Data ([facility]) Vital Signs (Past 12 Hours) Vital Signs Temp Pulse Pulse Resp BP BP Pulse Ox 04/21/20 15:02 98.1 F 87 20 172/96 H 189/72 H 96 04/21/20 11:21 97.9 F 102 H 20 127/86 97 04/21/20 09:00 110 H 04/21/20 07:11 99.0 F 101 H 18 173/105 H 164/104 H 96 PG Care Time/CCT Total # of Minutes Spent Total Time Spent with Patient: Total time spent is greater than 50% in coordination of care (as documented) at patient's floor/unit and/or counseling patient:35 minutes with more than 50% of time spent on discussing goals of care and coordination of care Coding Level of Care Code 95738 Subseq Hosp Care Lvl 3 Diagnoses Palliative care encounter Z51.5 Constipation K59.00 Chronic pain disorder G89.4
[2020-04-21] MEDS: POLYETHYLENE (MIRALAX) 17 GM PACK PO SCH (15:54)
[2020-04-21] MEDS: GABAPENTIN 100 MG CAP PO SCH (20:02)
--- NOTE | 2020-04-21 21:14 | Hospitalist Progress Note ---
Date of Service April 21, 2020 Assessment & Plan (1) Fall: Weakness, possibly related to nutrition status vs untx UTI vs polypharmacy This is likely nutrition related. Patien's BMI is very low at 14. Concern that patient is not eating due to possible malignancy vs esophageal dysmotilty. Had speech eval today and she tolerated her meal, and not showing signs of aspiration. She may benefit from a barium swallow, however, she cannot stand for the test to be taken. It appears she was on hospice in the past. Consulted pallitive care, Niece who is working on becoming POA wants her to be discharged on home health with possibility of transitioning to hospice. But she would like to see how she does first PT/OT eval completed. It appears Lety is agreeable to hospice at this time. D/W palliative care and case management. (2) Bipolar 1 disorder: No current meds other than xanax Records requested (3) Chronic pain disorder: Hx of fibro noted will place on gabapentin. hydrocodone, methadone Records requested (4) UTI (urinary tract infection): Recent dx in [place], finished unspecified abx yesterday UA + for leuk est, neg nitrites Urine cx pending Mild leukocytosis, possible stress reaction (5) Lung cancer: States tx with radiation 2 yrs ago CXR and CT noted for nodular opacities, possibly scarring Records requested for comparison If unable to obtain, will need f/u imaging Palliative care c/s completed (6) Renal infarct: Noted on CTA appreciate input from vascular (7) Malnutrition: Severe protein-calorie malnutrition e/b BMI of 14, WT 34.8 kg, +cachexia, and frail appearing/weakness 84-year-old female who presents to the ED with inability to walk, malnutrition, hypertension, and concerns of neglect. Wt. 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 Lucho Lemus, [facility] [phone] Dr. Blanco, methadone rx, no # given Dr. Delilah Hamilton, Pt states she followed with a Dr. Adrian for oncology, no other info known HIM requested (9) Fracture of seven ribs of left side: Pain control as noted above. Unsure of chronicity of this lesion. Admission and Anticipated Discharge Date Admission Date: April 18, 2020 Subjective Patient reports her pain is controlled. Shhe is having flatus but no BM. Review of Systems Review of Systems: All systems reviewed & are unremarkable except as noted in HPI & below Physical Exam Physical Exam: Constitutional: + cachectic and + frail appearing; not disheveled Eyes: normal visual maldonado by confrontation and + anicteric sclerae Neck: normal visual inspection and trachea midline Respiratory: normal respiratory effort, lungs clear to auscultation Cardiovascular: Rate/Rhythm: regular rhythm and + tachycardic Gastrointestinal (Abdomen): Inspection/Auscultation: abdomen not distended Percussion/Palpation: abdomen soft; abdomen nontender Musculoskeletal: Head/Neck/Chest: normocephalic and head atraumatic negative for edema, peripheral pulses intact Skin: no rashes, warm and dry Neurologic: awake; not confused Speech / Cognition: normal speech Psychiatric: A+Ox3, euthymic affect Results & Data Results & Data ([facility]) Vital Signs (Past 12 Hours) Vital Signs Temp Pulse Resp BP BP Pulse Ox 04/21/20 18:58 37.1 C 97 H 20 169/86 H 96 04/21/20 15:02 36.7 C 87 20 172/96 H 189/72 H 96 04/21/20 11:21 36.6 C 102 H 20 127/86 97 PG Care Time/CCT Total # of Minutes Spent Total Time Spent with Patient: Total time spent is greater than 50% in coordination of care (as documented) at patient's floor/unit and/or counseling patient: Coding Level of Care Code 96413 Subseq Hosp Care Lvl 3 Diagnoses Fall W19.XXXA Bipolar 1 disorder F31.9 Chronic pain disorder G89.4 UTI (urinary tract infection) N39.0 Lung cancer C34.90 Renal infarct N28.0 Malnutrition E46 DVT prophylaxis Z29.9 Fracture of seven ribs of left side S22.42XA Time Spent (min) 35
[2020-04-22] MEDS: NSS + 20MEQ KCL 20 MEQ/1,000 ML BAG IV SCH ×2 (01:27→21:42)
[2020-04-22 06:26] LABS: Hemoglobin 9.7 g/dL (12.0-16.0); Mean Corpuscular Hemoglobin 31.3 pg (25-34); Mean Corpuscular Hgb Conc 33.4 g/dL (32-36); Mean Corpuscular Volume 93.5 fL (80-100); Mean Platelet Volume 9.1 fL (7.4-10.4); Platelet Count 348 K/uL (130-400); RDW Coefficient of Variation 15.9 % (11.5-14.5); RDW Standard Deviation 53.9 fL (36.4-46.3); White Blood Count 6.32 K/uL (4.8-10.8)
[2020-04-22] MEDS: HYDROcodone/ACETAMINOPHEN 10/325 TAB PO PRN ×4 (06:28→20:46)
[2020-04-22] MEDS: SIMETHICONE 80 MG CHEW PO PRN (08:39)
[2020-04-22] MEDS: HEPARIN SOD 5,000 UNIT/0.5 ML VIAL SQ SCH ×2 (08:40→20:34)
[2020-04-22] MEDS: METOPROLOL TARTRATE 25 MG TAB PO SCH ×2 (08:40→20:34)
[2020-04-22] MEDS: SENNA 8.6 MG TAB PO SCH ×2 (08:40→20:33)
[2020-04-22] MEDS: POLYETHYLENE (MIRALAX) 17 GM PACK PO SCH (08:54)
[2020-04-22] MEDS: ACETAMINOPHEN 325 MG TAB PO PRN (08:56)
[2020-04-22] MEDS: HYDROmorphone INJ 0.5 MG/0.5 ML SYR IV PRN (18:17)
--- NOTE | 2020-04-22 19:43 | Hospitalist Progress Note ---
Date of Service April 22, 2020 Assessment & Plan (1) Fall: Weakness, possibly related to nutrition status vs untx UTI vs polypharmacy This is likely nutrition related. Patien's BMI is very low at 14. Concern that patient is not eating due to possible malignancy vs esophageal dysmotilty. Had speech eval today and she tolerated her meal, and not showing signs of aspiration. She may benefit from a barium swallow, however, she cannot stand for the test to be taken. It appears she was on hospice in the past. Consulted pallitive care, Niece who is working on becoming POA wants her to be discharged on home health with possibility of transitioning to hospice. Had another extensive talk with [place] and updated her, she is leaning towards hospice, but would like to talk to her mother (patient's sister). PT/OT eval completed. It appears Lety is agreeable to hospice at this time, awaiting decision by Niansley. D/W palliative care and case management. (2) Bipolar 1 disorder: No current meds other than xanax Records requested (3) Chronic pain disorder: Hx of fibro noted will place on gabapentin. hydrocodone, methadone Records requested (4) UTI (urinary tract infection): Recent dx in [place], finished unspecified abx yesterday UA + for leuk est, neg nitrites Urine cx pending Mild leukocytosis, possible stress reaction (5) Lung cancer: States tx with radiation 2 yrs ago CXR and CT noted for nodular opacities, possibly scarring Records requested for comparison If unable to obtain, will need f/u imaging Palliative care c/s completed (6) Renal infarct: Noted on CTA appreciate input from vascular (7) Malnutrition: Severe protein-calorie malnutrition e/b BMI of 14, WT 34.8 kg, +cachexia, and frail appearing/weakness 84-year-old female who presents to the ED with inability to walk, malnutrition, hypertension, and concerns of neglect. Wt. 34.8 Kg, BMI 14.0, Uncertain if related to an undx recurrent cancer vs editor index issues as related per family TSH WNL Patient has poor calorie intake, will likely discharge with home health and transition to hospice at discharge Pt states hx of Grave's disease (8) DVT prophylaxis: Heparin for DVT proph Pt was scheduled to be seen as a new pt at [facility],, will need rescheduled Info from rx bottles: Dr. Lucho Lemus, [facility] [phone] Dr. Blanco, methadone rx, no # given Dr. Delilah Hamilton, Pt states she followed with a Dr. Adrian for oncology, no other info known HIM requested (9) Fracture of seven ribs of left side: Pain control as noted above. Unsure of chronicity of this lesion. Admission and Anticipated Discharge Date Admission Date: April 18, 2020 Subjective 84 yo female reports feeling well. She has no new complaints. Review of Systems Review of Systems: All systems reviewed & are unremarkable except as noted in HPI & below Physical Exam Physical Exam: Constitutional: + cachectic and + frail appearing; not disheveled Eyes: normal visual maldonado by confrontation and + anicteric sclerae Neck: normal visual inspection and trachea midline Respiratory: normal respiratory effort, lungs clear to auscultation Cardiovascular: Rate/Rhythm: regular rhythm and + tachycardic Gastrointestinal (Abdomen): Inspection/Auscultation: abdomen not distended Percussion/Palpation: abdomen soft; abdomen nontender Musculoskeletal: Head/Neck/Chest: normocephalic and head atraumatic negative for edema, peripheral pulses intact Skin: no rashes, warm and dry Neurologic: awake; not confused Speech / Cognition: normal speech Psychiatric: Alert to person, place euthymic affect Results & Data Results & Data ([facility]) Vital Signs (Past 12 Hours) Vital Signs Temp Pulse Pulse Resp BP Pulse Ox 04/22/20 19:00 37.3 C 79 20 168/75 H 96 04/22/20 15:00 100 H 04/22/20 14:57 36.7 C 100 H 20 156/84 H 97 04/22/20 11:53 36.8 C 65 18 158/81 H 96 PG Care Time/CCT Total # of Minutes Spent Total Time Spent with Patient: Total time spent is greater than 50% in coordination of care (as documented) at patient's floor/unit and/or counseling patient: Coding Level of Care Code 38900 Subseq Hosp Care Lvl 3 Diagnoses Fall W19.XXXA Bipolar 1 disorder F31.9 Chronic pain disorder G89.4 UTI (urinary tract infection) N39.0 Lung cancer C34.90 Renal infarct N28.0 Malnutrition E46 DVT prophylaxis Z29.9 Fracture of seven ribs of left side S22.42XA Time Spent (min) 35
[2020-04-22] MEDS: GABAPENTIN 100 MG CAP PO SCH (20:33)
[2020-04-23] MEDS: HYDROmorphone INJ 0.5 MG/0.5 ML SYR IV PRN (00:34)
[2020-04-23] MEDS: HYDROcodone/ACETAMINOPHEN 10/325 TAB PO PRN ×4 (06:13→19:43)
[2020-04-23] MEDS: POLYETHYLENE (MIRALAX) 17 GM PACK PO SCH (08:30)
[2020-04-23] MEDS: METOPROLOL TARTRATE 25 MG TAB PO SCH ×2 (08:30→20:36)
[2020-04-23] MEDS: HEPARIN SOD 5,000 UNIT/0.5 ML VIAL SQ SCH ×2 (08:31→20:36)
[2020-04-23] MEDS: SENNA 8.6 MG TAB PO SCH ×2 (08:31→20:36)
[2020-04-23] MEDS: NSS + 20MEQ KCL 20 MEQ/1,000 ML BAG IV SCH (15:38)
[2020-04-23] MEDS ORDERED: amLODIPine BESYLATE 5 MG TAB PO ONE (16:07)
--- NOTE | 2020-04-23 20:17 | Hospitalist Progress Note ---
Date of Service April 23, 2020 Assessment & Plan (1) Fall: Weakness, possibly related to nutrition status vs untx UTI vs polypharmacy This is likely nutrition related. Patien's BMI is very low at 14. Concern that patient is not eating due to possible malignancy vs esophageal dysmotilty. Had speech eval today and she tolerated her meal, and not showing signs of aspiration. She may benefit from a barium swallow, however, she cannot stand for the test to be taken. It appears she was on hospice in the past. Consulted palliative care, Niece who is working on becoming POA wants her to be discharged on home health with possibility of transitioning to hospice. Had another extensive talk with Niece and updated her om 04/22, she is leaning towards hospice, but would like to talk to her mother (patient's sister). PT/OT eval completed. It appears Lety is agreeable to hospice at this time, awaiting decision by Niansley. D/W palliative care and case management. (2) Bipolar 1 disorder: No current meds other than xanax Records requested (3) Chronic pain disorder: Hx of fibro noted Pain has improved with gabapentin. Placed on gabapentin during hospital stay. hydrocodone, methadone Records requested (4) UTI (urinary tract infection): Recent dx in [place], finished unspecified abx yesterday UA + for leuk est, neg nitrites Urine cx pending Mild leukocytosis, possible stress reaction (5) Lung cancer: States tx with radiation 2 yrs ago CXR and CT noted for nodular opacities, possibly scarring Records requested for comparison If unable to obtain, will need f/u imaging Palliative care c/s completed (6) Renal infarct: Noted on CTA appreciate input from vascular (7) Malnutrition: Severe protein-calorie malnutrition e/b BMI of 14, WT 34.8 kg, +cachexia, and frail appearing/weakness 84-year-old female who presents to the ED with inability to walk, malnutrition, hypertension, and concerns of neglect. Wt. 34.8 Kg, BMI 14.0, Uncertain if related to an undx recurrent cancer vs scrum coach issues as related per family TSH WNL Patient has poor calorie intake, will likely discharge with home health and transition to hospice at discharge Pt states hx of Grave's disease (8) DVT prophylaxis: Heparin for DVT proph Pt was scheduled to be seen as a new pt at [facility],, will need rescheduled Info from rx bottles: Dr. Lucho Lemus, [facility] [phone] Dr. Blanco, methadone rx, no # given Dr. Delilah Hamilton, Pt states she followed with a Dr. Adrian for oncology, no other info known HIM requested (9) Fracture of seven ribs of left side: Pain control as noted above. Unsure of chronicity of this lesion. (10) Hypertension: B/P has been elevated during this hopsital stay. Patient has required intermittent lisinopril, added amlodipine. Will recommend folloing regimen of BB, lisniopril 2.5 mg in AM, with 2.5 amlodipine in PM. Admission and Anticipated Discharge Date Admission Date: April 18, 2020 Subjective Patient reports feeling well. patient has no new complaints today. Review of Systems Review of Systems: All systems reviewed & are unremarkable except as noted in HPI & below Physical Exam Physical Exam: Constitutional: + cachectic and + frail appearing; not disheveled Eyes: normal visual maldonado by confrontation and + anicteric sclerae Neck: normal visual inspection and trachea midline Respiratory: normal respiratory effort, lungs clear to auscultation Cardiovascular: Rate/Rhythm: regular rhythm and + tachycardic Gastrointestinal (Abdomen): Inspection/Auscultation: abdomen not distended Percussion/Palpation: abdomen soft; abdomen nontender Musculoskeletal: Head/Neck/Chest: normocephalic and head atraumatic negative for edema, peripheral pulses intact Skin: no rashes, warm and dry Neurologic: awake; not confused Speech / Cognition: normal speech Psychiatric: Alert to person, place euthymic affect Results & Data Results & Data ([facility] [place]) Vital Signs (Past 12 Hours) Vital Signs Temp Pulse Resp BP BP Pulse Ox 04/23/20 19:00 37.4 C 90 20 170/75 H 95 04/23/20 15:26 191/99 H 04/23/20 15:23 37.1 C 92 H 18 196/94 H 98 04/23/20 11:27 36.3 C L 71 16 150/74 H 98 PG Care Time/CCT Total # of Minutes Spent Total Time Spent with Patient: Total time spent is greater than 50% in coordination of care (as documented) at patient's floor/unit and/or counseling patient: Coding Level of Care Code 97810 Subseq Hosp Care Lvl 2 Diagnoses Fall W19.XXXA Bipolar 1 disorder F31.9 Chronic pain disorder G89.4 UTI (urinary tract infection) N39.0 Lung cancer C34.90 Renal infarct N28.0 Malnutrition E46 DVT prophylaxis Z29.9 Fracture of seven ribs of left side S22.42XA Hypertension I10 Time Spent (min) 25
[2020-04-23] MEDS: GABAPENTIN 100 MG CAP PO SCH (20:36)
[2020-04-23] MEDS: ACETAMINOPHEN 325 MG TAB PO PRN (22:39)
[2020-04-24] MEDS ORDERED: MELATONIN 3 MG TAB PO ONE (00:03)
[2020-04-24] MEDS: ACETAMINOPHEN 325 MG TAB PO PRN ×2 (04:58→11:30)
[2020-04-24 06:11] LABS: Appearance Urine Clear (Clear); Bacteria Urine Automated Negative (Negative); Bilirubin Urine Negative (Negative); Blood Urine Negative (Negative); Color Urine Yellow; Glucose Urine UA Negative (Negative); Ketones Urine Negative (Negative); Leukocyte Esterase Urine Trace (Negative); Nitrite Urine Negative (Negative); Protein Urine Trace (Negative); RBC Urine Automated 0-4 /hpf (0-4); Specific Gravity Urine 1.009 (1.000-1.030); Urobilinogen Urine Negative (Negative)
[2020-04-24] MEDS ORDERED: PHENAZOPYRIDINE HCL 100 MG TAB PO PRN (08:33)
[2020-04-24] MEDS: HYDROcodone/ACETAMINOPHEN 10/325 TAB PO PRN ×3 (08:54→19:19)
[2020-04-24] MEDS: METOPROLOL TARTRATE 25 MG TAB PO SCH ×2 (08:56→21:29)
[2020-04-24] MEDS: POLYETHYLENE (MIRALAX) 17 GM PACK PO SCH (08:56)
[2020-04-24] MEDS: SENNA 8.6 MG TAB PO SCH ×2 (08:57→21:29)
[2020-04-24] MEDS: lisinopril 2.5 MG TAB PO SCH (08:57)
[2020-04-24 09:53] LABS: Hematocrit (blood only) 30.9 % (37-47); Hemoglobin 10.4 g/dL (12.0-16.0); Mean Corpuscular Hemoglobin 31.6 pg (25-34); Mean Corpuscular Hgb Conc 33.7 g/dL (32-36); Mean Corpuscular Volume 93.9 fL (80-100); Platelet Count 390 K/uL (130-400); RDW Standard Deviation 55.6 fL (36.4-46.3); Red Blood Count 3.29 M/uL (4.2-5.4)
[2020-04-24 10:14] LABS: BUN Creatinine Ratio 19.8 (10-20); Calcium 9.1 mg/dl (8.5-10.1); Est GFR (African American) 63.8; Est GFR (Non-African American) 55.1; Potassium 3.3 mmol/L (3.5-5.1)
[2020-04-24] MEDS: DAPTOmycin 225 MG in SYRINGE 0 ML IV SCH (10:26)
[2020-04-24] MEDS: HEPARIN SOD 5,000 UNIT/0.5 ML VIAL SQ SCH ×2 (11:49→21:25)
--- NOTE | 2020-04-24 14:19 | Palliative Care Progress Note ---
Date of Service April 24, 2020 Assessment & Plan (1) Chronic pain disorder: Description consistent with neuropathic pain. Will increase hs gabapentin dose. Continue hydrocodone. Could consider lidocaine patch. (2) Constipation: BM today. On miralax and senna (3) Palliative care encounter: Spoke with Lety Dos Santos's niec and power of civil rights attorney. She would like her to have hospice care when she comes home. We discussed hospice benefit and what is provided. She has hospital bed at home but would like bedside commode. Advised that hospice can follow and adjust gabapentin and meds for pain man agement at home. (4) Lung cancer: Admission and Anticipated Discharge Date Admission Date: April 18, 2020 Subjective More weak today. Ate a small amount of breakfast this morning. Has been c/o increased pain in right low back that shoots down her leg. She is taking hydrocodone pretty much regularly four times a day and has said that she did not feel good on morphine or oxycodone in the past. Review of Systems Review of Systems: Palliative Performance Score 40% [place] Symptom Assessment Score Pain 2/3 Nausea 1/3 Anorexia 2/3 Fatigue 3/3 Physical Exam Constitutional: + cachectic and + frail appearing Cardiovascular: Extremities: no edema Musculoskeletal: Extremities: + muscle atrophy Neurologic: moves all extremities and + confused (at times) Results & Data ([facility]) Vital Signs (Past 12 Hours) Vital Signs Temp Pulse Pulse Resp BP BP Pulse Ox 04/24/20 11:37 97.7 F 75 20 162/88 H 94 04/24/20 07:41 97.7 F 75 20 162/88 H 94 04/24/20 07:30 100 H PG Care Time/CCT Total # of Minutes Spent Total Time Spent with Patient: Total time spent is greater than 50% in coordination of care (as documented) at patient's floor/unit and/or counseling patient: Total time spent, 40 minutes with more than 50% of time spent on symptom management and coordination of care. Coding Level of Care Code 33183 Subseq Hosp Care Lvl 3 Diagnoses Chronic pain disorder G89.4 Constipation K59.00 Palliative care encounter Z51.5 Lung cancer C34.90
--- NOTE | 2020-04-24 14:58 | Hospitalist Progress Note ---
Date of Service April 24, 2020 Assessment & Plan (1) Fall: Weakness, possibly related to nutrition status vs untx UTI vs polypharmacy This is likely nutrition related. Patien's BMI is very low at 14. Concern that patient is not eating due to possible malignancy vs esophageal dysmotilty. Had speech eval -- she tolerated her meal, and not showing signs of aspiration. It appears she was on hospice in the past. Consulted palliative care, Niece who is working on becoming POA wants her to be discharged on home health with possibility of transitioning to hospice. Palliative care helping on discharge plans with home hospice PT/OT eval completed. patient is agreeable to hospice at this time working on details for discharge, likely tomorrow (2) Bipolar 1 disorder: No current meds other than xanax Records requested (3) Chronic pain disorder: Hx of fibro noted Pain has improved with gabapentin. Placed on gabapentin during hospital stay. hydrocodone, methadone regimen per palliative care (4) UTI (urinary tract infection): Recent dx in [place], finished unspecified abx?? UA + for leuk est, neg nitrites Urine cx with MRSA today she has dysuria, frequency, urgency, incontinence will start on Vancomycin IV for now could give Macrobid on discharge (5) Lung cancer: States tx with radiation 2 yrs ago CXR and CT noted for nodular opacities, possibly scarring Records requested for comparison no further treatment planned, look for palliative approach (6) Renal infarct: Noted on CTA (7) Malnutrition: Severe protein-calorie malnutrition e/b BMI of 14, WT 34.8 kg, +cachexia, and frail appearing/weakness 84-year-old female who presents to the ED with inability to walk, malnutrition Wt. 34.8 Kg, BMI 14.0, Uncertain if related to an undx recurrent cancer vs baby doctor issues as related per family TSH WNL Patient has poor calorie intake, will likely discharge to hospice at discharge Pt states hx of Grave's disease (8) DVT prophylaxis: Heparin for DVT proph Pt was scheduled to be seen as a new pt at [facility],, will need rescheduled Info from rx bottles: Dr. Lucho Lemus, [facility] [phone] Dr. Blanco, methadone rx, no # given Dr. Delilah Hamilton, Pt states she followed with a Dr. Adrian for oncology, no other info known (9) Fracture of seven ribs of left side: Pain control as noted above. Unsure of chronicity of this lesion. (10) Hypertension: B/P has been elevated during this hopsital stay. Patient has required intermittent lisinopril, added amlodipine. Will recommend folloing regimen of BB, lisniopril 2.5 mg in AM, with 2.5 amlodipine in PM. Admission and Anticipated Discharge Date Admission Date: April 18, 2020 Subjective patient c/o burning and urinary frequency causing her a great deal of discomfort and distress, went to the bathroom "13 times last night" and she had some incontinence reviewed culture, grew out MRSA, unclear how she was treated will give her some pyridium and Vanco IV for now d/w Dr. Ruvalcaba, working on getting her home with hospice, niece is working on this unsure if we can get her home today Review of Systems Review of Systems: All systems reviewed & are unremarkable except as noted in Subjective Constitutional: + fatigue and + weakness; no fever Respiratory: no cough and no dyspnea Cardiovascular: no chest pain and no edema Gastrointestinal: no abdominal pain, no nausea, no vomiting, no constipation and no diarrhea/loose stools Genitourinary: + dysuria, + urinary frequency and + urinary incontinence Musculoskeletal: + back pain, + joint pain, + limited range of motion and + muscle weakness Physical Exam Constitutional: well developed, + thin, + cachectic and comfortable; no acute distress Neck: trachea midline, no thyromegaly Respiratory: normal respiratory effort, lungs clear to auscultation Cardiovascular: RRR, no murmur, no edema Gastrointestinal (Abdomen): normal bowel sounds, soft, nontender, no hepatosplenomegaly Musculoskeletal: Head/Neck/Chest: normocephalic, head atraumatic and neck supple Extremities: + limited ROM of extremities, + abnormal strength and + muscle atrophy; no cyanosis, no clubbing and no petechiae Skin: no rashes, warm and dry Neurologic: normal touch/pain/proprioception, CN's II-XI intact bilaterally, deep tendon reflexes 2+ bilaterally, moves all extremities and awake; no focal motor deficits Psychiatric: A+Ox3, euthymic affect Lymphatic: no cervical or axillary lymphadenopathy Results & Data Results & Data ([facility]) Vital Signs (Past 12 Hours) Vital Signs Temp Pulse Pulse Resp BP BP Pulse Ox 04/24/20 11:37 36.5 C 75 20 162/88 H 94 04/24/20 07:41 36.5 C 75 20 162/88 H 94 04/24/20 07:30 100 H Laboratory Results Laboratory Results - last 24 hr 04/24/20 04/24/20 04/24/20 05:45 09:22 09:22 WBC 5.90 RBC 3.29 L Hgb 10.4 L Hct 30.9 L MCV 93.9 MCH 31.6 MCHC 33.7 RDW Std Deviation 55.6 H RDW Coeff of Kevyn 16.0 H Plt Count 390 MPV 9.0 Sodium 136 Potassium 3.3 L Chloride 99 Carbon Dioxide 28 Anion Gap 9.0 BUN 19 H Creatinine 0.96 Est Cr Clr Drug Dosing 26.0 Est GFR ( Amer) 63.8 Est GFR (Non-Af Amer) 55.1 BUN/Creatinine Ratio 19.8 Glucose 167 H Calcium 9.1 Urine Color Yellow Urine Appearance Clear Urine pH 7.0 Ur Specific [place] 1.009 Urine Protein Trace H Urine Glucose (UA) Negative Urine Ketones Negative Urine Blood Negative Urine Nitrite Negative Urine Bilirubin Negative Urine Urobilinogen Negative Ur Leukocyte Esterase Trace H Urine WBC (Auto) 1-5 Urine RBC (Auto) 0-4 U Hyaline Cast (Auto) 1-5 U Epithel Cells (Auto) 10-20 H Urine Bacteria (Auto) Negative Medications Administered Current Inpatient Medications Acetaminophen (Acetaminophen 325 Mg Tab) 650 mg PO Q4H PRN PRN Reason: Pain or Fever Stop: 05/18/20 17:10 Last Admin: 04/24/20 11:30 Dose: 650 mg Documented by: Hydrocodone Bitart/Acetaminophen (Hydrocodone/Acetaminophen 10/325 Tab) 1 tab PO Q4H PRN PRN Reason: pain Stop: 05/02/20 17:10 Last Admin: 04/24/20 13:39 Dose: 1 tab Documented by: Amlodipine Besylate (Amlodipine Besylate 5 Mg Tab) 2.5 mg PO PM DOROTHEA Stop: 05/24/20 20:59 Gabapentin (Gabapentin 100 Mg Cap) 100 mg PO HS DOROTHEA Stop: 05/19/20 20:59 Last Admin: 04/23/20 20:36 Dose: 100 mg Documented by: Heparin Sodium (Porcine) (Heparin Sod 5,000 Unit/0.5 Ml Vial) 5,000 units SQ Q12 [facility] Stop: 05/19/20 20:59 Last Admin: 04/24/20 11:49 Dose: 5,000 units Documented by: Hydromorphone HCl (Hydromorphone Inj 0.5 Mg/0.5 Ml Syr) 0.25 mg IV Q4H PRN PRN Reason: Pain Stop: 05/02/20 10:06 Last Admin: 04/23/20 00:34 Dose: 0.25 mg Documented by: Daptomycin 225 mg/ Syringe 4.5 mls @ 2.25 mls/min IV Q48H [facility]; Protocol Stop: 05/04/20 08:59 Last Admin: 04/24/20 10:26 Dose: 2.25 mls/min Documented by: Lisinopril (Lisinopril 2.5 Mg Tab) 2.5 mg PO QAM [facility] Stop: 05/24/20 08:59 Last Admin: 04/24/20 08:57 Dose: 2.5 mg Documented by: Magnesium Hydroxide (Magnesium Hydroxide Susp 30 Ml Udc) 30 ml PO Q12H PRN PRN Reason: Constipation Stop: 05/18/20 17:10 Last Admin: 04/22/20 06:28 Dose: 30 ml Documented by: Melatonin (Melatonin 3 Mg Tab) 3 mg PO HS PRN PRN Reason: Sleep Stop: 05/23/20 23:48 Metoprolol Tartrate (Metoprolol Tartrate 25 Mg Tab) 25 mg PO BID [facility] Stop: 05/19/20 20:59 Last Admin: 04/24/20 08:56 Dose: 25 mg Documented by: Miscellaneous Information (Daptomycin Consult Active) 1 ea N/A UD PRN PRN Reason: Consult Stop: 05/24/20 08:38 Ondansetron HCl (Ondansetron Inj 2 Mg/Ml 2 Ml Vial) 4 mg IV Q6H PRN PRN Reason: Nausea Stop: 05/18/20 17:10 Last Admin: 04/19/20 13:42 Dose: 4 mg Documented by: Phenazopyridine HCl (Phenazopyridine Hcl 100 Mg Tab) 100 mg PO TID PRN PRN Reason: Dysuria Stop: 05/24/20 08:32 Last Admin: 02/01/21 10:26 Dose: 100 mg Documented by: Polyethylene Glycol (Polyethylene (Miralax) 17 Gm Pack) 17 gm PO DAILY PRN PRN Reason: Constipation Stop: 05/21/20 15:21 Last Admin: 04/23/20 20:37 Dose: 17 gm Documented by: Polyethylene Glycol (Polyethylene (Miralax) 17 Gm Pack) 17 gm PO DAILY [facility] Stop: 05/21/20 15:29 Last Admin: 04/24/20 08:56 Dose: 17 gm Documented by: Sennosides (Senna 8.6 Mg Tab) 8.6 mg PO BID [facility] Stop: 05/20/20 20:59 Last Admin: 04/24/20 08:57 Dose: 8.6 mg Documented by: Simethicone (Simethicone 80 Mg Chew) 80 mg PO Q6H PRN PRN Reason: Gas or Constipation Stop: 05/19/20 18:21 Last Admin: 04/22/20 08:39 Dose: 80 mg Documented by: PG Care Time/CCT Total # of Minutes Spent Total Time Spent with Patient: Total time spent is greater than 50% in coordination of care (as documented) at patient's floor/unit and/or counseling patient: Coding Level of Care Code 48564 Subseq Hosp Care Lvl 3 Diagnoses Fall W19.XXXA Bipolar 1 disorder F31.9 Chronic pain disorder G89.4 UTI (urinary tract infection) N39.0 Lung cancer C34.90 Renal infarct N28.0 Malnutrition E46 DVT prophylaxis Z29.9 Fracture of seven ribs of left side S22.42XA Hypertension I10
[2020-04-24] MEDS: MELATONIN 3 MG TAB PO PRN (21:25)
[2020-04-24] MEDS: GABAPENTIN 100 MG CAP PO SCH (21:29)
[2020-04-24] MEDS: amLODIPine BESYLATE 5 MG TAB PO SCH (21:29)
[2020-04-25] MEDS: HYDROcodone/ACETAMINOPHEN 10/325 TAB PO PRN ×4 (01:04→19:28)
[2020-04-25 07:09] LABS: Hematocrit (blood only) 28.9 % (37-47); Hemoglobin 9.6 g/dL (12.0-16.0); Mean Corpuscular Hemoglobin 31.4 pg (25-34); Mean Corpuscular Hgb Conc 33.2 g/dL (32-36); Mean Corpuscular Volume 94.4 fL (80-100); Platelet Count 337 K/uL (130-400); RDW Coefficient of Variation 16.3 % (11.5-14.5); RDW Standard Deviation 56.4 fL (36.4-46.3); Red Blood Count 3.06 M/uL (4.2-5.4); White Blood Count 6.33 K/uL (4.8-10.8)
[2020-04-25 07:36] LABS: Creatinine Clr Calc Pharmacy 24.7 ml/min; Est GFR (Non-African American) 59.5
[2020-04-25] MEDS: METOPROLOL TARTRATE 25 MG TAB PO SCH ×2 (07:42→20:06)
[2020-04-25] MEDS: lisinopril 2.5 MG TAB PO SCH (07:42)
[2020-04-25] MEDS: SENNA 8.6 MG TAB PO SCH ×2 (07:42→20:07)
[2020-04-25] MEDS: POLYETHYLENE (MIRALAX) 17 GM PACK PO SCH (07:44)
[2020-04-25] MEDS: HEPARIN SOD 5,000 UNIT/0.5 ML VIAL SQ SCH ×2 (07:44→20:12)
[2020-04-25] MEDS: ACETAMINOPHEN 325 MG TAB PO PRN ×2 (11:51→18:06)
--- NOTE | 2020-04-25 15:23 | Hospitalist Progress Note ---
Date of Service April 25, 2020 Assessment & Plan (1) Fall: Weakness, possibly related to nutrition status vs untx UTI vs polypharmacy This is likely nutrition related. Patien's BMI is very low at 14. Concern that patient is not eating due to possible malignancy vs esophageal dysmotilty. Had speech eval -- she tolerated her meal, and not showing signs of aspiration. It appears she was on hospice in the past. Consulted palliative care, Niece who is working on becoming POA wants her to be discharged on home health with possibility of transitioning to hospice. Palliative care helping on discharge plans with home hospice PT/OT eval completed. patient is agreeable to hospice at this time home hospice can start tomorrow per CM, will plan to discharge tomorrow morning (2) Bipolar 1 disorder: No current meds other than xanax Records requested (3) Chronic pain disorder: Hx of fibro noted Pain has improved with gabapentin. Placed on gabapentin during hospital stay. hydrocodone, methadone regimen per palliative care (4) UTI (urinary tract infection): Recent dx in [place], finished unspecified abx?? UA + for leuk est, neg nitrites Urine cx with MRSA 2/ she had dysuria, frequency, urgency, incontinence will start on Daptomycin IV for now could give Macrobid/Tetracycline on discharge next dose of Daptomycin is tomorrow morning, should get this prior to discharge it is helping her symptoms (5) Lung cancer: States tx with radiation 2 yrs ago CXR and CT noted for nodular opacities, possibly scarring Records requested for comparison no further treatment planned, look for palliative approach (6) Renal infarct: Noted on CTA (7) Malnutrition: Severe protein-calorie malnutrition e/b BMI of 14, WT 34.8 kg, +cachexia, and frail appearing/weakness 84-year-old female who presents to the ED with inability to walk, malnutrition Wt. 34.8 Kg, BMI 14.0, Uncertain if related to an undx recurrent cancer vs nurse practitioner per diem issues as related per family TSH WNL Patient has poor calorie intake, will likely discharge to hospice at discharge Pt states hx of Grave's disease (8) DVT prophylaxis: Heparin for DVT proph Pt was scheduled to be seen as a new pt at [facility],, will need rescheduled Info from rx bottles: Dr. Lucho Lemus, [facility] [phone] Dr. Blanco, methadone rx, no # given Dr. Delilah Hamilton, Pt states she followed with a Dr. Adrian for oncology, no other info known (9) Fracture of seven ribs of left side: Pain control as noted above. Unsure of chronicity of this lesion. (10) Hypertension: B/P has been elevated during this hopsital stay. Patient has required intermittent lisinopril, added amlodipine. Will recommend folloing regimen of BB, lisniopril 2.5 mg in AM, with 2.5 amlodipine in PM. Admission and Anticipated Discharge Date Admission Date: April 18, 2020 Subjective patient says her dysuria, frequency, incontinence are better today still has a lot of bone and joint pain eating very little she agrees with going home on hospice tomorrow touched base with bottle caser, everything is arranged for tomorrow Review of Systems Review of Systems: All systems reviewed & are unremarkable except as noted in Subjective Genitourinary: + dysuria and + urinary urgency Musculoskeletal: + back pain, + joint pain, + stiffness and + muscle weakness Physical Exam Constitutional: well developed, + thin, + cachectic and comfortable; no acute distress Neck: trachea midline, no thyromegaly Respiratory: normal respiratory effort, lungs clear to auscultation Cardiovascular: RRR, no murmur, no edema Gastrointestinal (Abdomen): normal bowel sounds, soft, nontender, no hepatosplenomegaly Musculoskeletal: Head/Neck/Chest: normocephalic, head atraumatic and neck supple Extremities: + limited ROM of extremities, + abnormal strength and + muscle atrophy; no cyanosis, no clubbing and no petechiae Skin: no rashes, warm and dry Neurologic: normal touch/pain/proprioception, CN's II-XI intact bilaterally, deep tendon reflexes 2+ bilaterally, moves all extremities and awake; no focal motor deficits Psychiatric: A+Ox3, euthymic affect Lymphatic: no cervical or axillary lymphadenopathy Results & Data Results & Data ([facility]) Vital Signs (Past 12 Hours) Vital Signs Temp Pulse Pulse Resp BP Pulse Ox 04/25/20 15:12 37.2 C 93 H 18 133/72 95 04/25/20 09:54 81 04/25/20 07:19 36.5 C 81 16 164/75 H 95 04/25/20 04:05 87 Laboratory Results Laboratory Results - last 24 hr 04/25/20 04/25/20 06:46 06:46 WBC 6.33 RBC 3.06 L Hgb 9.6 L Hct 28.9 L MCV 94.4 MCH 31.4 MCHC 33.2 RDW Std Deviation 56.4 H RDW Coeff of Kevyn 16.3 H Plt Count 337 MPV 9.0 Creatinine 0.90 Est Cr Clr Drug Dosing 24.7 Est GFR ( Amer) 69.0 Est GFR (Non-Af Amer) 59.5 Medications Administered Current Inpatient Medications Acetaminophen (Acetaminophen 325 Mg Tab) 650 mg PO Q4H PRN PRN Reason: Pain or Fever Stop: 05/18/20 17:10 Last Admin: 04/25/20 11:51 Dose: 650 mg Documented by: Hydrocodone Bitart/Acetaminophen (Hydrocodone/Acetaminophen 10/325 Tab) 1 tab PO Q4H PRN PRN Reason: pain Stop: 05/02/20 17:10 Last Admin: 04/25/20 14:45 Dose: 1 tab Documented by: Amlodipine Besylate (Amlodipine Besylate 5 Mg Tab) 2.5 mg PO PM [facility]OTHE[facility] Stop: 05/24/20 20:59 Last Admin: 04/24/20 21:29 Dose: 2.5 mg Documented by: Gabapentin (Gabapentin 100 Mg Cap) 100 mg PO HS [facility] Stop: 05/19/20 20:59 Last Admin: 04/24/20 21:29 Dose: 100 mg Documented by: Heparin Sodium (Porcine) (Heparin Sod 5,000 Unit/0.5 Ml Vial) 5,000 units SQ Q12 [facility] Stop: 05/19/20 20:59 Last Admin: 04/25/20 07:44 Dose: 5,000 units Documented by: Hydromorphone HCl (Hydromorphone Inj 0.5 Mg/0.5 Ml Syr) 0.25 mg IV Q4H PRN PRN Reason: Pain Stop: 05/02/20 10:06 Last Admin: 04/23/20 00:34 Dose: 0.25 mg Documented by: Daptomycin 225 mg/ Syringe 4.5 mls @ 2.25 mls/min IV Q48H [facility]; Protocol Stop: 05/04/20 08:59 Last Admin: 04/24/20 10:26 Dose: 2.25 mls/min Documented by: Lisinopril (Lisinopril 2.5 Mg Tab) 2.5 mg PO QAM [facility] Stop: 05/24/20 08:59 Last Admin: 04/25/20 07:42 Dose: 2.5 mg Documented by: Magnesium Hydroxide (Magnesium Hydroxide Susp 30 Ml Udc) 30 ml PO Q12H PRN PRN Reason: Constipation Stop: 05/18/20 17:10 Last Admin: 04/22/20 06:28 Dose: 30 ml Documented by: Melatonin (Melatonin 3 Mg Tab) 3 mg PO HS PRN PRN Reason: Sleep Stop: 05/23/20 23:48 Last Admin: 04/24/20 21:25 Dose: 3 mg Documented by: Metoprolol Tartrate (Metoprolol Tartrate 25 Mg Tab) 25 mg PO BID [facility] Stop: 05/19/20 20:59 Last Admin: 04/25/20 07:42 Dose: 25 mg Documented by: Miscellaneous Information (Daptomycin Consult Active) 1 ea N/A UD PRN PRN Reason: Consult Stop: 05/24/20 08:38 Ondansetron HCl (Ondansetron Inj 2 Mg/Ml 2 Ml Vial) 4 mg IV Q6H PRN PRN Reason: Nausea Stop: 05/18/20 17:10 Last Admin: 04/19/20 13:42 Dose: 4 mg Documented by: Phenazopyridine HCl (Phenazopyridine Hcl 100 Mg Tab) 100 mg PO TID PRN PRN Reason: Dysuria Stop: 05/24/20 08:32 Last Admin: 04/24/20 10:26 Dose: 100 mg Documented by: Polyethylene Glycol (Polyethylene (Miralax) 17 Gm Pack) 17 gm PO DAILY PRN PRN Reason: Constipation Stop: 05/21/20 15:21 Last Admin: 04/23/20 20:37 Dose: 17 gm Documented by: Polyethylene Glycol (Polyethylene (Miralax) 17 Gm Pack) 17 gm PO DAILY [facility] Stop: 05/21/20 15:29 Last Admin: 04/25/20 07:44 Dose: 17 gm Documented by: Sennosides (Senna 8.6 Mg Tab) 8.6 mg PO BID [facility] Stop: 05/20/20 20:59 Last Admin: 04/25/20 07:42 Dose: 8.6 mg Documented by: Simethicone (Simethicone 80 Mg Chew) 80 mg PO Q6H PRN PRN Reason: Gas or Constipation Stop: 05/19/20 18:21 Last Admin: 04/22/20 08:39 Dose: 80 mg Documented by: PG Care Time/CCT Total # of Minutes Spent Total Time Spent with Patient: Total time spent is greater than 50% in coordination of care (as documented) at patient's floor/unit and/or counseling patient: Coding Level of Care Code 70509 Subseq Hosp Care Lvl 2 Diagnoses Fall W19.XXXA Bipolar 1 disorder F31.9 Chronic pain disorder G89.4 UTI (urinary tract infection) N39.0 Lung cancer C34.90 Renal infarct N28.0 Malnutrition E46 DVT prophylaxis Z29.9 Fracture of seven ribs of left side S22.42XA Hypertension I10
[2020-04-25] MEDS: amLODIPine BESYLATE 5 MG TAB PO SCH (20:06)
[2020-04-25] MEDS: GABAPENTIN 100 MG CAP PO SCH (20:08)
[2020-04-26] MEDS: MELATONIN 3 MG TAB PO PRN (00:31)
[2020-04-26] MEDS: ACETAMINOPHEN 325 MG TAB PO PRN ×2 (03:55→10:38)
[2020-04-26 07:37] LABS: Creatinine Clr Calc Pharmacy 27.5 ml/min; Est GFR (African American) 78.4; Est GFR (Non-African American) 67.6
[2020-04-26] MEDS: DAPTOmycin 225 MG in SYRINGE 0 ML IV SCH (08:14)
[2020-04-26] MEDS: lisinopril 2.5 MG TAB PO SCH (08:14)
[2020-04-26] MEDS: HEPARIN SOD 5,000 UNIT/0.5 ML VIAL SQ SCH (08:14)
[2020-04-26] MEDS: METOPROLOL TARTRATE 25 MG TAB PO SCH (08:14)
[2020-04-26] MEDS: POLYETHYLENE (MIRALAX) 17 GM PACK PO SCH (08:40)
[2020-04-26] MEDS: SENNA 8.6 MG TAB PO SCH (08:41)
[2020-04-26] MEDS: HYDROcodone/ACETAMINOPHEN 10/325 TAB PO PRN ×2 (08:41→13:36)
--- NOTE | 2020-04-26 10:40 | Discharge Summary ---
Date of Service April 26, 2020 Admission HPI Per Admitting Provider Chief Complaint: 84 y/o F who was brought to the ED after a fall earlier today. Currently, pt states she feels very nervous. She says she has not slept in 4 days. She states that she has had n/v x5 days, but that she feels hungry now. She has pain in her b/l LE, which is her usual pain that she typically take hydrocodone for. She states she has night sweats at times. Pt was living in [place], [place] with her son until recently. Pt tells me that she is unsure why her sister came there and brought her back to [place]. She states that "I had a nice little apartment there". Niece tells me that pt was living in a intermediate community that has an age restriction. Pt's son was able to live there as a metallographer. Niece states that the son would leave the home for long periods of time and the pt was not able to ambulate to feed herself. Niece states that they came to [place] to get the pt as the pt was being evicted "because of her son". She states that the home was "unsanitary". She states that the pt's son would not give them any of her records, including medical records. She states that she does not have current contact info for the pt's son. Pt tells me that she was recently dx with a UTI and finished her abx yesterday. She does not know what she was taking. She does not know who dx her with a UTI. Her niece does confirm this, but states that the UTI was dx prior to she and pt's sister arriving in [place]. Pt states she has been urinating normally. She states that she has a hard time starting to urinate often. No burning or frequency. Pt tells me that she has been off of xanax x2 months. Her niece tells me that she only just recently ran out. She had "maybe 5 pills" with her when they left [place]. Niece says she took one yesterday. Pt tells me that she last took her hydrocodone yesterday. Niece says that pt took her afternoon dose around 4:30p, but refused her 10p dose. She confirms that pt did not have any today. Niece told me that pt took her methadone last night. She is unsure of the dose, but states that she takes 2 pills twice a day. Pt tells me that she had some sort of event about 1 year ago that was a seizure vs a stroke. She states she was never put on any seizure meds and has had no repeat episodes. Niece confirms that pt's only meds were xanax, hydrocodone, and methadone. Pt tells me "I need an antidepressant". She states that she used to take an antidepressant, but she is not sure why it was stopped. Pt tells me that she was dx with lung cancer roughly 2 years ago. She was treated with what she describes as radiation tx. She states she followed with a Dr. Adrian, but does not know his full name. She tells me she was involved with hospice there, but does not know the name of any practice or doctors. Niece states she was involved in "hospice, but not the end of life kind". She also tells me that pt's son told them that he cured pt's cancer. Pt's medication bottles are at her sister's home. [place] is going to obtain these to let us know the names of the prescribing physicians. She will call in with this info. Pt was set up to establish with a PCP tomorrow at [facility]. [place] does not remember who pt was to see. Primary Care Provider: NO PCP Principal Diagnosis Severe malnutrition, failure to thrive in setting of lung cancer Discharge Exam Constitutional well developed, + thin, + cachectic and comfortable; no acute distress Neck trachea midline, no thyromegaly Respiratory normal respiratory effort, lungs clear to auscultation Cardiovascular RRR, no murmur, no edema Gastrointestinal (Abdomen) normal bowel sounds, soft, nontender, no hepatosplenomegaly Musculoskeletal Head/Neck/Chest: normocephalic, head atraumatic and neck supple Extremities: + limited ROM of extremities, + abnormal strength and + muscle atrophy; no cyanosis, no clubbing and no petechiae Skin no rashes, warm and dry Neurologic normal touch/pain/proprioception, CN's II-XI intact bilaterally, deep tendon reflexes 2+ bilaterally, moves all extremities and awake; no focal motor deficits Psychiatric A+Ox3, euthymic affect Lymphatic no cervical or axillary lymphadenopathy Discharge Data Allergies Allergy/AdvReac Type Severity Reaction Status Date / Time No Known Allergies Allergy Unverified 04/18/20 09:47 Consultations 04/18/20 12:51 ED Decision to Admit Stat 04/18/20 17:11 Consult Case Management - Discharge Planning Routine Consult Health Information Management Stat Consult Palliative Care Stat Consult Vascular Surgery Routine 04/18/20 17:50 Consult Palliative Care Routine Ordered Studies 04/18/20 10:07 CT abd pelvis IV con only Stat CT cervical spine wo con Stat CT head/brain wo con Stat CT lumbar spine wo con Stat CT thoracic spine wo con Stat Hospital Course (1) Fall: Weakness, possibly related to nutrition status vs untx UTI vs polypharmacy This is likely nutrition related. Patien's BMI is very low at 14. Concern that patient is not eating due to possible malignancy vs esophageal dysmotilty. Had speech eval -- she tolerated her meal, and not showing signs of aspiration. It appears she was on hospice in the past. Consulted palliative care, Niece who is working on becoming POA wants her to be discharged on home health with possibility of transitioning to hospice. Palliative care helping on discharge plans with home hospice PT/OT eval completed. patient is agreeable to hospice at this time home hospice can start today, will d/c to home (2) Bipolar 1 disorder: No current meds other than xanax Records requested (3) Chronic pain disorder: Hx of fibro noted Pain has improved with gabapentin. Placed on gabapentin during hospital stay. hydrocodone, methadone regimen per palliative care (4) UTI (urinary tract infection): Recent dx in [place], finished unspecified abx?? UA + for leuk est, neg nitrites Urine cx with MRSA 2/ she had dysuria, frequency, urgency, incontinence treated with Daptomycin IV initially give Doxycycline on discharge (5) Lung cancer: States tx with radiation 2 yrs ago CXR and CT noted for nodular opacities, possibly scarring Records requested for comparison no further treatment planned, look for palliative approach (6) Renal infarct: Noted on CTA (7) Malnutrition: Severe protein-calorie malnutrition e/b BMI of 14, WT 34.8 kg, +cachexia, and frail appearing/weakness 84-year-old female who presents to the ED with inability to walk, malnutrition Wt. 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 Unsure of chronicity of this lesion. (9) Hypertension: BP improved with addition of Norvasc and metoprolol will continue these on discharge Total Time Total Time Spent Total Time Spent (In Minutes): 32 minutes Total Time Includes: Examination of the Patient, Discharge Planning, Medication Reconciliation, Communication With Other Providers (Dr. Ruvalcaba with palliative care) and Other (communicated with correctional case manager) Discharge Plan Discharge Items Patient Disposition: Hospice - Home Reason For Visit: FALL Discharge Diagnosis: Chronic pain, weakness Lung cancer MRSA Urinary tract infection Condition on Discharge: Fair Goals: comfort care, control symptoms, specifically pain complete short course of antibiotics for UTI Activity: Resume your previous activity Non-emergency contact: Primary Care Provider Call non-emergency contact if: you have any medication questions, your symptoms worsen and your pain is not controlled Follow-up/Referrals: Elizabeth Keller MD [Physician] - () Diet: Regular Addtl Attending Provider Instructions: Medications: - DOXYCYCLINE: take 100mg twice a day, start taking on morning of 04/27, take for three days - AMLODIPINE and METOPROLOL: added for blood pressure control, working well, continue at home - GABAPENTIN: added for neuropathic pain, could consider increasing further, making twice a day, defer to hospice services - PYRIDIUM: use as needed for bladder pain - SENOKOT: take twice a day to help keep stools regular - LIDOCAINE PATCH: apply to painful areas once a day, can be obtained over the counter - ATIVAN: 0.5mg at bedtime to help you sleep Lung cancer, weakness, chronic pain, severe malnutrition transition to home hospice, focus on comfort and keeping you at home use gabapentin, Lidocaine patch, Hydrocodone for pain relief UTI: urine culture grew out MRSA no signs of severe infection you received two doses of Daptomycin IV which will cover MRSA take three more days of Doxycycline 100mg twice a day, start on 04/27/20 Pending Studies at Discharge: No Stand-Alone Forms: My [employer] Medications and DC Order Prescriptions: New sennosides [Senokot] 8.6 mg Tablet 8.6 mg PO BID 30 Days Qty: 60 RF: 0 amlodipine [Norvasc] 5 mg Tablet 5 mg PO PM 30 Days Qty: 30 RF: 2 phenazopyridine [Pyridium] 100 mg Tablet 100 mg PO TID PRN (Reason: pain) 10 Days Qty: 30 RF: 0 gabapentin 100 mg Capsule 200 mg PO HS 30 Days Qty: 60 RF: 3 metoprolol tartrate 25 mg Tablet 25 mg PO BID 30 Days Qty: 60 RF: 2 lidocaine 4 % adhesive patch,medicated 1 patch topical DAILY PRN (Reason: pain) Qty: 15 RF: 0 lorazepam 0.5 mg tablet 0.5 mg PO HS PRN (Reason: sleep) Qty: 30 RF: 0 Continued hydrocodone-acetaminophen 10-325 mg tablet 1 tab PO .COMPLEX PRN (Reason: pain) Qty: 120 RF: 0 Discharge Orders: Discharge Order (Routine); Ordered 04/26/20 Ordered By: Nickolas Olivas Admission Data Admit Date/Time: 04/18/20 14:38 Attending Provider: Nickolas Olivas Admit Provider: Ghazala aBnks Primary Care Provider: PCP,NO Other Providers: Ghazala Banks ; Fabi Ruvalcaba ; Camden Leroy ; [facility] Other Interventions: Discharge Summary Assessment (RN) Last Done: 04/26/20 10:43 Coding Level of Care Code D/C Day Management >30 mins Diagnoses Fall W19.XXXA Bipolar 1 disorder F31.9 Chronic pain disorder G89.4 UTI (urinary tract infection) N39.0 Lung cancer C34.90 Renal infarct N28.0 Malnutrition E46 Fracture of seven ribs of left side S22.42XA Hypertension I10
== END 2020-04-26 14:07 | disposition hospice, home (50) | DRG 180 ==
LOC: ED 09:02 → SUATTDRO 14:38 → 2N 14:38